=== PATIENT | male | born 1955 | race Caucasian/White ===

== ENCOUNTER → 2020-02-28 08:08 | Outpatient (BNVA) | payer MEDICARE, SELFPAY | PROVIDERS: PCP Internal Medicine Geriatric Medicine; Visit Provider Anesthesiology | DX: G89.4 Chronic pain syndrome (principal); M47.816 Spondylosis without myelopathy or radiculopathy, lumbar region; M51.36 Other intervertebral disc degeneration, lumbar region | CPT/HCPCS: 99212 ==

== ENCOUNTER 2020-03-28 07:01 | Outpatient (REF) | payer MEDICARE, SELFPAY ==
--- NOTE | 2020-03-28 07:40 | FL_ITS ---
EXAMINATION: XR FLUOROSCOPY WITH IMAGES CLINICAL INFORMATION: Spondylosis with myelopathy or radiculopathy. COMPARISON: None. TECHNIQUE: Fluoroscopy performed by Evelia Hernández NP. Fluoroscopy time: 1.0 minutes DAP: 6.86 Gycm2 Images: 8 FINDINGS: Multiple images were obtained through lumbar spine with needle positioned posterolateral to the bilateral pedicles at L5 L4 L3 vertebra with contrast injection. There is loss of disc height at all lumbar disc levels with mild spondylosis L4-L5 and L5-S1 disc levels. FL/FL guidance in treatment room IMPRESSION: Fluoroscopy guidance was provided for pain management Department.
== END 2020-03-28 07:02 | disposition home or self-care (01) ==
LOC: HO.RADIR 07:01
PROVIDERS: Visit Provider Anesthesiology
DX: M47.816 Spondylosis without myelopathy or radiculopathy, lumbar region (principal); M51.36 Other intervertebral disc degeneration, lumbar region; G89.4 Chronic pain syndrome
CPT/HCPCS: 64493; 64494; 64495; Q9967

== ENCOUNTER → 2020-04-03 10:53 | Outpatient (BNVA) | payer MEDICARE, SELFPAY | PROVIDERS: PCP Internal Medicine Geriatric Medicine; Visit Provider Anesthesiology | DX: M47.816 Spondylosis without myelopathy or radiculopathy, lumbar region (principal); M51.36 Other intervertebral disc degeneration, lumbar region; G89.4 Chronic pain syndrome | CPT/HCPCS: Q3014 ==

== ENCOUNTER 2020-06-14 14:26 | Outpatient (REF) | payer MEDICARE, SELFPAY | END 2020-06-14 14:27 | disposition home or self-care (01) | LOC: HO.LAB 14:26 | PROVIDERS: PCP Internal Medicine Geriatric Medicine; Visit Provider Internal Medicine | DX: Z20.822 Contact with and (suspected) exposure to COVID-19 (principal) | CPT/HCPCS: 36415; C9803; U0003; U0005 ==

== ENCOUNTER 2020-07-12 07:43 | Emergency (ER) | payer MEDICARE, SELFPAY ==
--- NOTE | ~2020-07-12 | XR_ITS ---
EXAMINATION: XR HAND, LEFT CLINICAL INFORMATION: Trauma, pain and swelling. COMPARISON: None TECHNIQUE: PA, lateral, and oblique views of the left hand. FINDINGS: There is no visible acute or healing fracture, dislocation, or destructive process. There is diffuse arthropathy present with prominent osteoarthritis lateral carpus and first carpometacarpal joint. There is also joint narrowing and subchondral sclerosis involving the first through fourth MCP joints. There are lesser degenerative changes interphalangeal joint thumb. XR/XR hand LT min 3V IMPRESSION: 1. No visible acute or healing fracture or dislocation. 2. Arthritis lateral carpus, MCP joints, and interphalangeal joint.
[2020-07-12 07:49] VITALS: BP 115/65; BP 180/65; PULSE 50; PULSE 62; RESP 16; TEMP 36.8; O2SAT 98; BMI 29.8
[2020-07-12 08:00] VITALS: BP 111/67; PULSE 53; RESP 18; TEMP 36.8; O2SAT 97
[2020-07-12] MEDS: Ibuprofen 600 MG TABLET PO (08:11)
--- NOTE | 2020-07-12 08:11 | ED_ITS ---
HPI - Back Pain/Injury General Chief Complaint: Back Pain/Injury Stated Complaint: tight shoulder, swollen finger Time Seen by Provider: 07/12/20 08:02 Source: patient and training director Mode of arrival: ambulatory Limitations: no limitations History of Present Illness HPI Narrative: 65-year-old male history of arthritis and chronic back pain came in by ambulance for evaluation of upper back pain and bilateral shoulder pain that started this morning, and symptoms start to improve with on arrival to the emergency department. Patient declined any injury or trauma to the back. Patient also has been complaining of left hand pain for a week. Reviewing patient's record patient follow-up with pain management for chronic pain syndrome. Related Data Home Medications Medication Instructions Recorded Confirmed aspirin 81 mg tablet,delayed 81 mg PO DAILY 02/28/20 release atorvastatin 20 mg tablet 20 mg PO DAILY 02/28/20 chlorthalidone 25 mg tablet 25 mg PO DAILY 02/28/20 gabapentin 600 mg tablet 600 mg PO BID 02/28/20 lisinopril 40 mg tablet 40 mg PO DAILY 02/28/20 meloxicam 15 mg tablet 15 mg PO DAILY 02/28/20 nabumetone 750 mg tablet 750 mg PO BID 02/28/20 naproxen 500 mg tablet,delayed 500 mg PO Q12H 02/28/20 release Allergies Allergy/AdvReac Type Severity Reaction Status Date / Time No Known Allergies Allergy Verified 04/03/20 10:53 [No Known Allergies*] Review of Systems Review of Systems: All other systems are reviewed and are negative Constitutional: Reports as per HPI and Reports no additional constitutional complaints Eyes: Reports as per HPI and Reports no additional eye complaints Reports system reviewed and no additional complaints, except as documented Cardiovascular: Reports as per HPI and Reports no additional cardiovascular complaints Respiratory: Reports as per HPI and Reports no additional respiratory complaints Gastrointestinal: Reports as per HPI and Reports no additional gastrointestinal complaints Genitourinary: Reports no additional female genitourinary complaints Musculoskeletal: Reports no additional musculoskeletal complaints Skin/Breast: Reports system reviewed and no additional complaints, except as docu Psychiatric: Reports no additional psychiatric complaints Endocrine: Reports no additional endocrine complaints Hematologic/Lymphatic: Reports no additional hematologic/lymphatic complaints Allergic/Immunologic: Reports no additional allergic/immunologic complaints Reports system reviewed and no additional complaints, except as documented and Reports Abnormal speech present PMFSH Past Medical History Medical History Chronic pain syndrome Disc degeneration, lumbar Spondylosis of lumbar spine Social History Social History Advance Directives: No Advance Directives Information Provided: No Physical Exam Vital Signs: Vital Signs: Last Vital Signs Temp 98.2 F 07/12/20 08:00 Pulse 53 07/12/20 08:00 Resp 18 07/12/20 08:00 BP 111/67 07/12/20 08:00 Pulse Ox 97 07/12/20 08:00 Body Mass Index 29.8 Vital signs have been reviewed as appeared to be correct. Blood pressure normal. Heart rate normal. Respiration rate normal. Temperature normal. Oxygen saturation normal. Appearance: Alert. Oriented X3. No acute distress. Head: Normal external exam. Normocephalic. Atraumatic. No [place] signs noted. No raccoon eyes noted Eyes: PERRLA. EOMI. Conjunctiva and sclera normal. Eyelids normal. ENT: TM's Normal. Pharynx normal. Uvula midline. Moist mucous membranes. No trismus noted. No drooling noted. No muffled voice noted. Neck: Normal inspection. Neck supple. FROM. No adenopathy. Thyroid Normal. No meningeal signs. No neck mass noted. CVS: Normal heart rate and rhythm. Heart sound normal. No murmurs noted. Pulses normal throughout. Respiratory: No respiratory distress. Painless inspiration. Breath sounds normal. No wheezes/rales/rhonchi noted. Chest nontender. No accessory muscle usage noted or decreased air movement noted. Abdomen: Soft and nontender. Bowel sounds normal in all 4 quadrants. No distention noted. No organomegaly noted. No visible injury noted. Back: No CVA tenderness. Full range of motion noted. Skin: Skin warm and dry. Normal skin color. Normal skin turgor. No rashe s/lesions/lacerations noted. Extremities: Mild tenderness to touch at the base of left index finger, mild swelling, no deformity, full range of motion is limited due to pain. Neuro: Oriented X 3. No motor deficit. No sensory deficit. Reflexes normal. Course Course Course Narrative: Assessment and plan. [age] year male who came in by ambulance for acute on chronic back pain that radiated to both shoulder, patient now is feeling better. Patient also been having left hand pain for a week possible injury. X-ray showing no acute fracture MDM - Back Pain/Injury Imaging Data Left hand x-ray: Radiologist's impression: There is no visible acute or healing fracture, dislocation, or destructive process. There is diffuse arthropathy present with prominent osteoarthritis lateral carpus and first carpometacarpal joint. There is also joint narrowing and subchondral sclerosis involving the first through fourth MCP joints. There are lesser degenerative changes interphalangeal joint thumb. Discharge Plan Discharge Clinical Impression: Chronic pain syndrome, Arthritis Patient Disposition: Home, Self-Care Instructions: Arthralgia (ED) Referrals: Name,MD Andriy [Primary Care Provider] - 2 days
[2020-07-12 10:00] VITALS: BP 125/71; PULSE 60; RESP 18; TEMP 36.8
== END 2020-07-12 10:31 | disposition home or self-care (01) ==
PROVIDERS: Emergency Provider Emergency Medicine; PCP Internal Medicine Geriatric Medicine
DX: M19.042 Primary osteoarthritis, left hand (principal); G89.29 Other chronic pain; M54.5 Low back pain; M25.512 Pain in left shoulder; M25.511 Pain in right shoulder; Z79.899 Other long term (current) drug therapy
CPT/HCPCS: 73130; 99284

== ENCOUNTER 2020-08-11 10:33 | Day surgery (SDC) | payer MEDICARE, SELFPAY ==
--- NOTE | ~2020-08-11 | FL_ITS ---
EXAMINATION: XR FLUOROSCOPY WITH IMAGES CLINICAL INFORMATION: Medial branch blocks. COMPARISON: None. TECHNIQUE: Fluoroscopy performed by Dr. Ibrahim. Fluoroscopy time: 1 minute. DAP: 21.9 mGy. Images: 8. FINDINGS: Intraoperative fluoroscopy was provided for use by Dr. Ibrahim. A radiologist was not present during imaging. Today's dictation is only for administrative purposes to document intraoperative fluoroscopy. FL/FL guidance in OR IMPRESSION: Intraoperative fluoroscopy provided for use by Dr. Ibrahim. Please see procedure note for details findings.
[2020-08-11 11:37] VITALS: BMI 29.0
[2020-08-11 11:44] VITALS: BP 146/84; PULSE 58; RESP 20; TEMP 36.2; O2SAT 97
[2020-08-11 11:46] LABS: Glucose, Whole Blood 76 mg/dL (60-115)
[2020-08-11] MEDS: Lactated Ringers 1,000 ML 50 ML IV (11:58)
--- NOTE | 2020-08-11 12:13 | MHC.SHP ---
Pre-Procedural Eval Section B Chief Complaint: Spondylosis of Lumbar Spine Details of Present Illness: As above Relevant Family History (Specify if Yes): No Relevant Social History: None Present Medications: see Short Stay Collaborative assessment Medical History: No relevant PMH History of Previous Operations: No relevant previous surgery Allergies: Allergies Allergy/AdvReac Type Severity Reaction Status Date / Time No Known Allergies Allergy Verified 08/11/20 11:36 [No Known Allergies*] Review of Systems Sugical H&P ROS: Negative: Constitution, Cardiovascular, Respiratory, Neurological, Psychiatric, Hem-Onc, Allergic/Immunologic, Gastrointestinal, Genitourinary, Musculoskeletal, Integumentary, Endocrine and Eyes/Ears/Nose/Throat Exam Surgical H&P Exam: Normal: HEENT, Normal: Heart, Normal: Lungs, Normal: Extremities, Normal: Abdomen, Normal: Skin and Normal: Neurological Plan Diagnosis/Plan: Unchanged I have reviewed the history and physical and performed a pertinent physical examination on my patient. No changes have occurred unless specified.
--- NOTE | 2020-08-11 12:19 | HO.ANESPROP2 ---
[facility] Active Problems Active Problems: All Active Problems (Updated 08/08/20 @ 11:20 by Juanita Rothman) Chronic pain syndrome (Acute) Disc degeneration, lumbar (Acute) Spondylosis of lumbar spine (Acute) Past Medical History Medical History Chronic pain syndrome Disc degeneration, lumbar Elevated cholesterol HTN (hypertension) Hx of chest pain Spondylosis of lumbar spine Surgical History Surgical History History of total left knee replacement (TKR) Hx of colonoscopy Social History Social History Smoking Status: Current every day smoker Use of substances other than those prescribed or required for medical reasons: No Advance Directives: No Advance Directives Information Provided: Yes Meds Allergies Allergy/AdvReac Type Severity Reaction Status Date / Time No Known Allergies Allergy Verified 08/11/20 11:36 [No Known Allergies*] Active Medications: Current Medications Generic Name Dose Route Start Last Admin Trade Name Janes PRN Reason Stop Dose Admin Lactated Ringer's 1,000 mls @ 50 mls/hr 08/10/20 08:15 08/11/20 11:58 Lr IV 50 mls/hr .Q20H EYAL Administration Home Medications Medication Instructions Recorded Confirmed Last Taken Type aspirin 81 mg tablet,delayed 81 mg PO DAILY 02/28/20 08/08/20 07/31/20 08:00 History release atorvastatin 20 mg tablet 20 mg PO DAILY 02/28/20 08/08/20 Unknown History chlorthalidone 25 mg tablet 25 mg PO DAILY 02/28/20 08/08/20 Unknown History gabapentin 600 mg tablet 600 mg PO BID 02/28/20 08/08/20 Unknown History lisinopril 40 mg tablet 40 mg PO DAILY 02/28/20 08/08/20 Unknown History meloxicam 15 mg tablet 15 mg PO DAILY 02/28/20 08/08/20 Unknown History nabumetone 750 mg tablet 750 mg PO BID 02/28/20 08/08/20 Unknown History naproxen 500 mg tablet,delayed 500 mg PO Q12H 02/28/20 08/08/20 Unknown History release diclofenac sodium 2 g TOPICAL BID 08/08/20 08/08/20 Unknown History tramadol 1 tab PO Q12H PRN 08/08/20 08/08/20 Unknown History Exam Exam Date and Time: August 11, 2020 1219 Height,Weight and Vital Signs: Height 5 ft 6 in Weight 81.647 kg Last Vital Signs Temp 97.1 F 08/11/20 11:44 Pulse 58 08/11/20 11:44 Resp 20 08/11/20 11:44 BP 146/84 H 08/11/20 11:44 Pulse Ox 97 08/11/20 11:44 Pertinent Lab Results Pertinent Lab Results: Laboratory Tests 08/11/20 11:43 POC Glucose 76 Airway Mallampati Class: II TM Dist: >3cm Neck ROM: Full
[2020-08-11 13:10] VITALS: BP 96/54; PULSE 60; RESP 14; TEMP 36.2; O2SAT 95
--- NOTE | 2020-08-11 13:18 | PM.OP ---
Brief Operative Note Date of Service: 08/11/20 Pre-op diagnosis: Spondylosis lumbar spine without myelopathy or radiculopathy Post-op diagnosis: same Procedure: L2-L3 L4 dorsal ramus L5 medial branch block bilateral therapeutic. Implants: In a Surgeon: Ashish Ibrahim MD Anesthesia: MAC Estimated blood loss (mL): 1 Pathology: none sent Condition: stable Disposition: PACU
--- NOTE | 2020-08-11 13:20 | W.PM.OPN ---
Operative Note Operative Note Date of Service: 08/11/20 Narrative: Narrative: Mr. Marin is very pleasant 65 years old gentleman who came today into the operating room for bilateral medial branch block L2 L3-L4 dorsal ramus L5 therapeutic. After obtaining informed consent patient was brought to the operating room, he was positioned prone on operating table, [place] [employer] monitors were applied and patient was deeply sedated. Time-out was performed delineating correct site, side, the nature of the procedure, patient's allergy, preoperative antibiotic. All operating room staff was participating in OR time-out procedure. Patient's lower back was prepped with ChloraPrep twice and draped with sterile utility drapes. Sterilely draped C-arm was brought over the operating field and sq picture of L3-L4 and L5 vertebra as as well as sacral bone were demonstrated on the screen. The point of interest were delineated as the connection of the superior articular process of L3-L4 and L5 vertebra on bilateral sides with corresponding transverse processes as well as connection of the superior articular process of S1 with sacral alae bilateral. Projection of the point of interest to the skin was injected with small amount of lidocaine. After that 22 gauge 3-1/2 inch needle was driven sequentially to the each point of interest under tunnel vision fashion. When the needle contacted the bone gently small amount of the contrast was injected into the needle delineating no intravascular nor intrathecal uptake of the contrast. After that 1 cc of bupivacaine 0.5% was injected into each needle mixed with Kenalog total dose of Kenalog was 60 mg. The patient tolerated procedure well he was taking outside of the operating room to recovery room. He recovered uneventfully.
[2020-08-11 13:25] VITALS: BP 114/66; PULSE 57; RESP 16; O2SAT 96
[2020-08-11 13:40] VITALS: BP 112/71; PULSE 52; RESP 16; O2SAT 98
[2020-08-11 13:55] VITALS: BP 143/84; PULSE 52; RESP 18; O2SAT 98
[2020-08-11 14:45] VITALS: BP 143/80; PULSE 57; RESP 21; TEMP 36.3; O2SAT 98
== END 2020-08-11 15:31 | disposition home or self-care (01) ==
LOC: HO.SSS 10:34
PROVIDERS: PCP Internal Medicine Geriatric Medicine; Visit Provider Anesthesiology
PROC: (CPT 64493; principal; 2020-08-11 15:50)
DX: M47.816 Spondylosis without myelopathy or radiculopathy, lumbar region (principal); M51.36 Other intervertebral disc degeneration, lumbar region; G89.4 Chronic pain syndrome; I10 Essential (primary) hypertension; Z79.899 Other long term (current) drug therapy
CPT/HCPCS: 64493; 64494 ×2; 82947; J2250; J3010; J3300; Q9967

== ENCOUNTER → 2020-09-20 11:32 | Outpatient (BNVA) | payer MEDICARE, SELFPAY | PROVIDERS: PCP Internal Medicine Geriatric Medicine; Visit Provider Anesthesiology | DX: M47.816 Spondylosis without myelopathy or radiculopathy, lumbar region (principal); M51.36 Other intervertebral disc degeneration, lumbar region; G89.4 Chronic pain syndrome; Z79.899 Other long term (current) drug therapy | CPT/HCPCS: Q3014 ==

== ENCOUNTER → 2020-10-04 10:58 | Outpatient (BNVA) | payer MEDICARE, SELFPAY | PROVIDERS: PCP Internal Medicine Geriatric Medicine; Visit Provider Anesthesiology | DX: M47.816 Spondylosis without myelopathy or radiculopathy, lumbar region (principal); M48.00 Spinal stenosis, site unspecified; M51.36 Other intervertebral disc degeneration, lumbar region; G89.4 Chronic pain syndrome | CPT/HCPCS: 99212 ==

== ENCOUNTER → 2020-11-08 08:46 | Outpatient (BNVA) | payer MEDICARE, SELFPAY | PROVIDERS: PCP Internal Medicine Geriatric Medicine; Referring Provider Internal Medicine Geriatric Medicine; Visit Provider Internal Medicine Cardiovascular Disease | DX: E78.00 Pure hypercholesterolemia, unspecified (principal); I10 Essential (primary) hypertension | CPT/HCPCS: 93005; 99212 ==

== ENCOUNTER 2020-12-19 06:22 | Outpatient (REF) | payer MEDICARE, SELFPAY ==
--- NOTE | ~2020-12-19 | FL_ITS ---
EXAMINATION: XR FLUOROSCOPY WITH IMAGES CLINICAL INFORMATION: Spinal stenosis. COMPARISON: None. TECHNIQUE: Fluoroscopy performed by Evelia Hernández NP. Fluoroscopy time: 0.9 minutes DAP: 11 Gycm2 Images: 4 FINDINGS: Images demonstrate needle placement and contrast injection adjacent to the bilateral lateral L3-L4 vertebral body. FL/FL guidance in treatment room IMPRESSION: Fluoroscopy guidance for spinal injection.
== END 2020-12-19 06:23 | disposition home or self-care (01) ==
LOC: HO.RADIR 06:22
PROVIDERS: Visit Provider Anesthesiology
DX: M47.816 Spondylosis without myelopathy or radiculopathy, lumbar region (principal); M51.36 Other intervertebral disc degeneration, lumbar region; M48.00 Spinal stenosis, site unspecified; G89.4 Chronic pain syndrome
CPT/HCPCS: 62323; J3300; Q9967

== ENCOUNTER → 2021-09-10 07:58 | Outpatient (BNVA) | payer MEDICARE, SELFPAY | PROVIDERS: PCP Internal Medicine Geriatric Medicine; Visit Provider Nurse Practitioner Family | DX: M47.816 Spondylosis without myelopathy or radiculopathy, lumbar region (principal); M51.36 Other intervertebral disc degeneration, lumbar region; M48.00 Spinal stenosis, site unspecified | CPT/HCPCS: 99212 ==

== ENCOUNTER 2021-11-05 14:08 | Outpatient (REF) | payer MEDICARE, SELFPAY ==
--- NOTE | ~2021-11-05 | MR_ITS ---
MR LUMBAR SPINE WITHOUT CONTRAST CLINICAL INFORMATION: Spondylosis without myelopathy or radiculopathy. COMPARISON: Lumbar spine MRI 12/27/2017. TECHNIQUE: MRI of the lumbar spine was obtained using routine sequences without contrast. FINDINGS: There is transitional anatomy. For the purposes of this report, the same counting system is used as the previous study presuming that S1 is partially lumbarized, sharing a rudimentary disc with S2 and that there are articulating transverse processes at L1. Please correlate with plain films prior to any percutaneous or surgical intervention. Chronic compression deformity at L1 is again noted. Similar appearing grade 1 degenerative anterolisthesis of L4 on L5. Progressive posterior disc volume loss at L1-L2, moderate to severe disc volume loss at L2-L3, and severe left-sided disc volume loss at L3-L4. Similar moderate to severe disc volume loss at L5-S1. There are large multilevel endplate osteophytes. Diffusely heterogeneous marrow signal is again noted. There is marrow edema within the L2, L3, L4, and L5 vertebral bodies, most likely Modic type I endplate signal changes which are progressed in comparison to the prior exam. There Modic type I signal changes at T11-T12 and T10-T11 as well. Conus terminates at the L1-L2 level. Bilateral perinephric stranding. Circumaortic left renal vein. Disc osteophyte and hypertrophic facet arthropathy result in moderate left T9-T10, moderate left T10-T11, moderate to severe left T11-T12, moderate right T10-T11, and severe right T11-T12 foraminal stenosis, all similar to the prior exam. L1-L2: There is a shallow left paracentral disc protrusion that results in similar posterior deflection of the traversing left L2 nerve root within the left subarticular zone. Background disc osteophyte and bilateral facet arthropathy and ligamentum flavum thickening. No central canal stenosis. There is mild bilateral foraminal encroachment. These findings are unchanged. L2-L3: There is a disc osteophyte complex eccentric to the left side and there is moderate bilateral facet arthropathy and ligamentum flavum thickening. Findings along with prominent dorsal epidural fat result in worsening moderate central canal stenosis, left subarticular zone stenosis with mass effect on the traversing left L3 nerve root, and worsening moderate right foraminal stenosis with mass effect on the exiting right L2 nerve root. There is mild to moderate left foraminal stenosis as well. L3-L4: There is a diffuse disc osteophyte complex and there is severe left and moderate right facet arthropathy and ligamentum flavum thickening. Prominent dorsal epidural fat. Findings in concert result in similar moderate central canal stenosis, left greater than right subarticular zone stenosis with mass effect on the traversing left L4 nerve root, and moderate to severe left foraminal stenosis with mass effect on the exiting left L3 nerve root. The previously seen inferiorly migrating left paracentral disc extrusion at this level is decreased in size, resulting in decreased mass effect on the traversing left L4 nerve root. L4-L5: Stable grade 1 degenerative anterolisthesis. Uncovered disc and severe bilateral facet arthropathy and ligamentum flavum thickening. Findings in concert result in similar appearing severe central canal stenosis, severe bilateral subarticular zone stenosis with compression of the traversing L5 nerve roots bilaterally, and mild to moderate bilateral foraminal stenosis. L5-S1: Diffuse disc osteophyte complex eccentric to the right side as well as moderate right greater than left hypertrophic facet arthropathy. Findings in concert result in similar moderate right-sided foraminal stenosis with mass effect on the exiting right L5 nerve root. MR/MR lumbar spine wo con IMPRESSION: - There is transitional anatomy. For the purposes of this report, the same counting system is used as the previous study presuming that S1 is partially lumbarized, sharing a rudimentary disc with S2 and that there are articulating transverse processes at L1. Please correlate with plain films prior to any percutaneous or surgical intervention. - At L5-S1, multifactorial degenerative changes result in similar moderate right-sided foraminal stenosis with mass effect on the exiting right L5 nerve root. - At L4-L5, grade 1 degenerative anterolisthesis and advanced multifactorial degenerative changes result in similar appearing severe central canal stenosis, severe bilateral subarticular zone stenosis with compression of the traversing L5 nerve roots bilaterally, and mild to moderate bilateral foraminal stenosis. - At L3-L4, multifactorial degenerative changes result in similar moderate central canal stenosis, left greater than right subarticular zone stenosis with mass effect on the traversing left L4 nerve root, and moderate to severe left foraminal stenosis with mass effect on the exiting left L3 nerve root. The previously seen inferiorly migrating left paracentral disc extrusion at this level is decreased in size, resulting in decreased mass effect on the traversing left L4 nerve root. - At L2-L3, progressive spondylitic changes and prominent dorsal epidural fat result in worsening moderate central canal stenosis, left subarticular zone stenosis with mass effect on the traversing left L3 nerve root, and worsening moderate right foraminal stenosis with mass effect on the exiting right L2 nerve root. - At L1-L2, a shallow left paracentral disc protrusion results in similar posterior deflection of the traversing left L2 nerve root within the left subarticular zone. - Stable appearing chronic compression deformity at L1. No new compression deformities. - Progressive bone marrow edema within the L2, L3, L4, and to lesser extent L5 vertebral bodies, most likely Modic type I endplate signal changes. There are also Modic type I signal changes within the lower thoracic spine. Nonspecific diffusely heterogeneous marrow signal throughout the thoracolumbar spine and partially imaged bony pelvis that is unchanged.
== END 2021-11-05 14:09 | disposition home or self-care (01) ==
LOC: HO.MRI 14:08
PROVIDERS: Visit Provider Nurse Practitioner Family
DX: M47.816 Spondylosis without myelopathy or radiculopathy, lumbar region (principal); M48.00 Spinal stenosis, site unspecified; M51.36 Other intervertebral disc degeneration, lumbar region
CPT/HCPCS: 72148

== ENCOUNTER → 2021-11-14 09:44 | Outpatient (BNVA) | payer MEDICARE, SELFPAY | PROVIDERS: PCP Internal Medicine Geriatric Medicine; Visit Provider Anesthesiology | DX: M47.816 Spondylosis without myelopathy or radiculopathy, lumbar region (principal); M51.36 Other intervertebral disc degeneration, lumbar region; M48.00 Spinal stenosis, site unspecified | CPT/HCPCS: 99212 ==

== ENCOUNTER 2021-12-25 06:19 | Outpatient (REF) | payer MEDICARE, SELFPAY ==
--- NOTE | ~2021-12-25 | FL_ITS ---
EXAMINATION: XR FLUOROSCOPY WITH IMAGES CLINICAL INFORMATION: M51.36 - Other intervertebral disc degeneration, lumbar region COMPARISON: MR lumbar spine 11/05/2021 TECHNIQUE: Fluoroscopy performed by Dr. Ashish Ibrahim. Fluoroscopy time: 0.4. Cumulative Dose: 7.54 mGy. DAP: 2.05 Gy-cm2. Images: 4. FINDINGS: Lumbar transitional vertebral numbering noted on MRI. There are spinal needles overlying the bilateral second presacral neural foramen. There is contrast seen in the respective nerve sheaths. Transforaminal epidural extension is also noted as expected. There is some contrast also noted extending along the lateral aspect right iliopsoas. No visible vascular communication. There are multilevel degenerative changes with variable disc narrowing and vertebral spurring. FL/FL guidance in treatment room IMPRESSION: Fluoroscopy for pain management procedures.
== END 2021-12-25 06:20 | disposition home or self-care (01) ==
LOC: HO.RADIR 06:19
PROVIDERS: Visit Provider Anesthesiology
DX: M51.16 Intervertebral disc disorders with radiculopathy, lumbar region (principal); G89.4 Chronic pain syndrome; M48.00 Spinal stenosis, site unspecified
CPT/HCPCS: 64483; J3300; Q9965

== ENCOUNTER → 2022-01-23 13:14 | Outpatient (BNVA) | payer MEDICARE, SELFPAY | PROVIDERS: PCP Internal Medicine Geriatric Medicine; Referring Provider Internal Medicine Geriatric Medicine; Visit Provider Internal Medicine Cardiovascular Disease | DX: I10 Essential (primary) hypertension (principal); E78.00 Pure hypercholesterolemia, unspecified; F17.210 Nicotine dependence, cigarettes, uncomplicated | CPT/HCPCS: 99212 ==

== ENCOUNTER 2022-01-30 07:05 | Outpatient (REF) | payer OTHER, SELFPAY ==
[2022-01-30 09:14] LABS: Cholesterol 146 mg/dL; HDL Cholesterol 52 mg/dL; LDL Cholesterol Calculated 82 mg/dl; Triglycerides 61 mg/dL
== END 2022-01-30 07:06 | disposition home or self-care (01) ==
LOC: HO.LAB 07:05
PROVIDERS: PCP Internal Medicine Geriatric Medicine; Visit Provider Internal Medicine Cardiovascular Disease
DX: E78.00 Pure hypercholesterolemia, unspecified (principal)
CPT/HCPCS: 36415; 80061

== ENCOUNTER 2022-07-08 09:48 | Outpatient (REF) | payer OTHER, SELFPAY ==
--- NOTE | ~2022-07-08 | XR_ITS ---
EXAMINATION: XR HIP, RIGHT CLINICAL INFORMATION: Pain COMPARISON: None available. TECHNIQUE: Two views of the right hip. FINDINGS: Bones and soft tissues are normal. No fracture. Alignment is anatomic. Hip joint space is maintained. XR/XR hip RT min 2V IMPRESSION: Normal right hip.
== END 2022-07-08 09:49 | disposition home or self-care (01) ==
LOC: HO.XRAY 09:48
PROVIDERS: PCP Internal Medicine Geriatric Medicine; Visit Provider Anesthesiology
DX: M16.11 Unilateral primary osteoarthritis, right hip (principal); M47.816 Spondylosis without myelopathy or radiculopathy, lumbar region; M51.36 Other intervertebral disc degeneration, lumbar region; M48.00 Spinal stenosis, site unspecified
CPT/HCPCS: 73502; 99212

== ENCOUNTER → 2022-08-01 09:39 | Outpatient (BNVA) | payer OTHER, SELFPAY | PROVIDERS: PCP Internal Medicine Geriatric Medicine; Visit Provider Anesthesiology | DX: M47.816 Spondylosis without myelopathy or radiculopathy, lumbar region (principal); M51.36 Other intervertebral disc degeneration, lumbar region; M48.00 Spinal stenosis, site unspecified | CPT/HCPCS: 99212 ==

== ENCOUNTER 2022-10-29 08:35 | Outpatient (REF) | payer OTHER, SELFPAY ==
[2022-10-29 11:12] LABS: MANUAL DIFF FLAG NO
[2022-10-29 11:37] LABS: Basophils Absolute Auto 0.1 X10*3/uL (0.0-0.2); Basophils Percent Auto 0.7 % (0-2); Eosinophils Absolute Auto 0.2 X10*3/uL (0.0-0.4); Eosinophils Percent Auto 1.6 % (0-4); Hematocrit 46.8 % (42.0-52.0); Hemoglobin 15.4 g/dl (14.0-18.0); Imm Gran Abs Auto 0.05 X10*3/uL (0.00-0.03); Imm Gran Pct Auto 0.5 % (0.0-0.4); Lymphocytes Absolute Auto 2.5 X10*3/uL (1.2-4.9); Lymphocytes Percent Auto 24.4 % (20-40); Mean Corpuscular HGB Conc 32.9 g/dl (31.0-36.0); Mean Corpuscular Hemoglobin 29.6 pg (27.0-33.0); Mean Corpuscular Volume 89.8 fL (80.0-98.0); Mean Platelet Volume 10.3 fL (9.4-12.4); Monocytes Absolute Auto 0.6 X10*3/uL (0.1-1.2); Neutrophils Absolute Auto 6.7 x10*3/uL (2.0-8.3); Neutrophils Percent Auto 66.8 % (45-73); Platelet Count 354 X10*3/uL (160-400); Red Blood Count 5.21 X10*6/uL (4.60-5.80)
[2022-10-29 11:45] LABS: Alanine Aminotransferase 21 U/L (0-40); Albumin Level 4.4 g/dL (3.5-5.0); Alkaline Phosphatase 64 U/L (39-117); Anion Gap 15 (12-20); Aspartate Amino Transferase 19 U/L (5-37); Bilirubin Total 0.9 mg/dL (0.0-1.0); Blood Urea Nitrogen 21 mg/dL (9-16); Calcium 9.9 mg/dL (8.4-10.2); Carbon Dioxide 24 mmol/L (22-29); Chloride 101 mmol/L (96-108); Cholesterol 133 mg/dL; Estimated Glomerular Filt Rate 51; Glucose Random 98 mg/dL (60-115); HDL Cholesterol 45 mg/dL; LDL Cholesterol Calculated 74 mg/dl; Potassium 4.1 mmol/L (3.3-5.1); Sodium 136 mmol/L (135-145); Total Protein 7.8 g/dL (6.5-8.0); Triglycerides 71 mg/dL
== END 2022-10-29 08:36 | disposition home or self-care (01) ==
LOC: HO.HMGCLDS 08:35
PROVIDERS: Visit Provider Internal Medicine Geriatric Medicine
DX: I10 Essential (primary) hypertension (principal); E78.00 Pure hypercholesterolemia, unspecified
CPT/HCPCS: 36415; 80053; 80061; 85025

== ENCOUNTER 2022-12-20 13:51 | Outpatient (AMB) | payer OTHER, SELFPAY ==
--- NOTE | 2022-12-20 08:10 | MHC.OFFVIS ---
Intake Intake Visit Reasons: LDCT SD Allergies No Known Allergies [No Known Allergies*] Allergy (Verified 08/01/22 09:45) HPI LDCT SD HPI Details Initial visit for this 67yo smoker with a 35PYH. Patient has been smoking since age 8 for 59 years at 1/2-3/4ppd. . Denies marijuana use. Denies second hand smoke exposure. Denies exposure to chemicals or substances like asbestos. . Reports family history of lung cancer. Mom. Denies personal history of cancers. . Denies chest CT in last year. 06/25/2012 chest CTA did not note any suspicious nodules . Denies recent travel outside the [place]. Denies recent respiratory illness or recent hospitalization for respiratory issues. Reprots testing positive for COVID once. Admits receiving COVID Vaccine x 4. . Denies fever, chills, new/worsening cough, hemoptysis, hoarseness or dysphagia. Denies significant chest pain, significant dyspnea or unintentional weight loss. Patient Lung Cancer Screening Questionnaire reviewed with patient by provider. . Shared Decision Making Completed. Patient meets criteria. Discussed in detail with patient, the risk vs benefit of LDCT screening. Patient consents to proceed with scan. Discussed smoking cessation. [facility] Medical History (Updated 12/20/22 @ 14:12 by María Bowman PA-C) Chronic pain syndrome Disc degeneration, lumbar Elevated cholesterol History of colon polyps HTN (hypertension) Hx of chest pain Nicotine dependence, cigarettes, uncomplicated Spinal stenosis Spondylosis of lumbar spine Surgical History (Updated 11/21/22 @ 13:55 by María Bowman PA-C) History of colonoscopy History of selective injection of anesthetic agent around lumbar nerve root History of total left knee replacement (TKR) Social History (Updated 12/20/22 @ 14:12 by María Bowman PA-C) Alcohol intake: former Year quit: 2019 Patient Tobacco Use Status: Current everyday Tobacco user Tobacco use type: Cigarette Years Smoked: (onset 8, 1/2-3/4ppd x 59yrs, 35pyh) Assessment & Plan Assessment & Plan (1) Nicotine dependence, cigarettes, uncomplicated: Comment: (current smoker - onset 8, 1/2-3/4ppd x 59yrs, 35pyh) Code(s): F17.210 - Nicotine dependence, cigarettes, uncomplicated Plan: - SDM visit completed today in office. - Patient meets criteria for LDCT for lung cancer screening purposes and is asymptomatic. - Smoking cessation counseling offered. Patients can always call [phone]. - Will arrange for a LDCT scan of the chest for screening purposes at [facility]. - Risks, benefits, and alternatives were discussed in detail and the patient agrees to proceed. - Risks discussed include but are not limited to: radiation exposure, anxiety during testing and while awaiting results, false negatives, false positives and possibility of additional intervention such as further imaging or surgical procedures for benign disease. - Benefits are obviously detection of lung cancer at an early stage which can lead to improved outcomes. - Discussed the importance of screening program compliance with adherence to yearly LDCT scan as scheduled - or sooner interval scans for personalized screening regimen. - Discussed follow up plan. Our office will send a letter discussing results and if needed set up phone call and office visit based on CT findings. - Patient educated on results categorization and the management decisions for suspicious findings potentially found on the screening LDCT scan. Any patient with a Lung RADS score of 3 or 4 will be reviewed by a multidisciplinary team at [facility] to form a plan of action in regards to scan findings. - If further work up is warranted for a suspicious lung finding this will be followed by the Lung Cancer Screening program in conjunction with the Thoracic Surgery Department at [facility]. - A copy of the office note and LDCT will be sent to the patient's PCP - as well as documentation on any associated further plans of care. - Incidental findings on LDCT are the PCP's responsibility. These findings are indicated with an S finding on the LDCT Assessment. A note discussing the findings will be sent to the PCP who is then responsible for further management. - All questions answered.? Coding Level of Care Code Lung Cancer Screening G0296 Diagnoses Nicotine dependence, cigarettes, uncomplicated F17.210
== END 2022-12-20 14:11 | disposition home or self-care (01) ==
PROVIDERS: PCP Internal Medicine Geriatric Medicine; Visit Provider Physician Assistant Medical
DX: F17.210 Nicotine dependence, cigarettes, uncomplicated (principal)
CPT/HCPCS: G0296

== ENCOUNTER 2022-12-20 14:13 | Outpatient (REF) | payer OTHER, SELFPAY ==
--- NOTE | ~2022-12-20 | CT_ITS ---
EXAMINATION: CT CHEST SCREENING CLINICAL INFORMATION: Current smoker, 59 pack-year. COMPARISON: CTA chest 06/25/2022. TECHNIQUE: Multidetector volumetric CT imaging of the chest is performed without contrast using low dose technique. Additional 2D coronal and sagittal reformatted images and axial 3D maximum intensity projection (MIP) images are generated on the CT workstation. This CT examination was performed using dose optimization techniques as appropriate, variously including the following: *Automated exposure control. *Adjustment of mA and/or kV according to patient size (this includes techniques or standardized protocols for targeted exams where dose is matched to indication/reason for exam; i.e. extremities or head). *Use of iterative reconstruction technique. DLP: 92 mGy-cm. FINDINGS: LUNGS: There is a 2 mm calcification left lower lobe image 210/6. The lungs are otherwise well expanded and clear of acute process. No noncalcified pulmonary nodules, mass or consolidation seen. MEDIASTINUM: The thyroid lobes are symmetrical and normal. The central trachea and bronchi are widely patent. Heart size and the great vessels are normal caliber. No pericardial effusion seen. No abnormal size mediastinal or hilar lymph nodes seen. CORONARY ARTERY CALCIFICATION: There is minimal coronary artery calcification. PLEURA: There is no pleural effusion. No pleural mass or thickening. AXILLA: There are small shotty lymph nodes visualized in the axilla. The chest wall is unremarkable. UPPER ABDOMEN: Visualized liver, spleen, pancreas and bilateral adrenal glands are unremarkable. OSSEOUS STRUCTURES: No aggressive lytic or sclerotic process seen. There is mild degenerative spondylosis in the mid and lower dorsal spine. CT/CT lung screening IMPRESSION: 1. 2 mm calcification left lower lobe. 2. Minimal coronary artery calcification. ASSESSMENT: Lung-RADS category 2: Benign. RECOMMENDATION: Low-dose annual CT chest.
== END 2022-12-20 14:14 | disposition home or self-care (01) ==
LOC: HO.CT 14:13
PROVIDERS: PCP Internal Medicine Geriatric Medicine; Visit Provider Physician Assistant Medical
DX: Z12.2 Encounter for screening for malignant neoplasm of respiratory organs (principal); F17.210 Nicotine dependence, cigarettes, uncomplicated
CPT/HCPCS: 71271; G0296

== ENCOUNTER 2023-01-07 11:08 | Outpatient (REF) | payer OTHER, SELFPAY ==
[2023-01-07 17:11] LABS: Anion Gap 11 (12-20); Blood Urea Nitrogen 13 mg/dL (9-16); Calcium 9.7 mg/dL (8.4-10.2); Carbon Dioxide 29 mmol/L (22-29); Chloride 102 mmol/L (96-108); Estimated Glomerular Filt Rate > 60; Glucose Random 151 mg/dL (60-115); Potassium 3.9 mmol/L (3.3-5.1); Sodium 138 mmol/L (135-145)
== END 2023-01-07 11:09 | disposition home or self-care (01) ==
LOC: HO.HHCL 11:08
PROVIDERS: Visit Provider Internal Medicine Geriatric Medicine
DX: I10 Essential (primary) hypertension (principal)
CPT/HCPCS: 36415; 80048

== ENCOUNTER 2023-01-08 16:01 | Inpatient (IN) | payer OTHER, SELFPAY ==
[2023-01-08 16:16] VITALS: BP 92/52; PULSE 82; RESP 18; TEMP 36.9; O2SAT 96; BMI 29.0
--- NOTE | 2023-01-08 16:17 | ED.GENADULT ---
HPI - General Adult General Chief complaint: General Medical Stated complaint: low blood pressure Time Seen by Provider: 01/09/23 00:15 Related Data Home Medications Medication Instructions Recorded Confirmed aspirin 81 mg tablet,delayed 81 mg PO DAILY 02/28/20 07/08/22 release atorvastatin 20 mg tablet 20 mg PO DAILY 02/28/20 07/08/22 chlorthalidone 25 mg tablet 25 mg PO DAILY 02/28/20 07/08/22 gabapentin 600 mg tablet 600 mg PO BID 02/28/20 07/08/22 lisinopril 40 mg tablet 40 mg PO DAILY 02/28/20 07/08/22 meloxicam 15 mg tablet 15 mg PO DAILY 02/28/20 07/08/22 diclofenac sodium 1 % topical gel 2 g topical BID 08/08/20 07/08/22 tramadol 50 mg tablet 1 tab PO Q12H PRN Pain 08/08/20 07/08/22 cyclobenzaprine 10 mg tablet 10 mg PO TID 09/10/21 07/08/22 omeprazole 20 mg capsule,delayed 20 mg PO DAILY 09/10/21 07/08/22 release fluoride (sodium) 1.1 % dental appl PO 01/23/22 07/08/22 cream (SF 5000 Plus) mometasone 0.1 % topical cream appl topical DAILY 01/23/22 07/08/22 Allergies Allergy/AdvReac Type Severity Reaction Status Date / Time No Known Allergies Allergy Verified 08/01/22 09:45 [No Known Allergies*] [facility] Past Medical History Medical History Nicotine dependence, cigarettes, uncomplicated History of colon polyps Spinal stenosis Hx of chest pain Elevated cholesterol HTN (hypertension) Chronic pain syndrome Disc degeneration, lumbar Spondylosis of lumbar spine Surgical History History of selective injection of anesthetic agent around lumbar nerve root History of colonoscopy History of total left knee replacement (TKR) Social History Social History (Updated 12/20/22 @ 14:12 by María Bowman PA-C) Alcohol intake: former Year quit: 2019 Patient Tobacco Use Status: Current everyday Tobacco user Tobacco use type: Cigarette Years Smoked: (onset 8, 1/2-3/4ppd x 59yrs, 35pyh) Advance Directives: No Advance Directives Information Provided: No Physical Exam ED Vital Signs: Vital Signs - 24 hr 01/08/23 16:16 01/08/23 22:19 01/09/23 02:21 Temperature 98.4 F Pulse Rate 82 56 53 Respiratory Rate 18 20 19 Blood Pressure 92/52 L 116/67 98/51 L Pulse Oximetry 96 96 Oxygen Delivery Method Room Air Room Air 01/09/23 02:41 01/09/23 03:32 01/09/23 03:33 Temperature Pulse Rate 55 63 55 Respiratory Rate 18 Blood Pressure 91/52 L 98/41 L 108/54 L Pulse Oximetry 98 Oxygen Delivery Method Room Air 01/09/23 03:34 01/09/23 03:36 Temperature Pulse Rate 61 73 Respiratory Rate 17 Blood Pressure 118/62 120/63 Pulse Oximetry 98 Oxygen Delivery Method Room Air BMI result Body Mass Index 29.0 Course Course Course Narrative: This is a rapid medical exam: Additional HPI, ROS, PE not included below will be deferred to primary provider. Patient is a 67-year-old male presenting to the emergency department with report of low blood pressure readings at home. Brings readings of 81/53 with HR of 85 and 87/48 with HR of 87 from 2pm and 3:30pm today. 92/52 in triage, patient reports some dizziness. Denies chest pain or shortness of breath. States lisinopril was recently lowered from 40mg to 20mg. Had some double vision earlier today which has since resolved. Plan: EKG, labs Medications Administered Discontinued Medications Generic Name Dose Route Start Last Admin Trade Name Freq PRN Reason Stop Dose Admin Sodium Chloride 2,000 mls @ 999 mls/hr 01/09/23 00:18 01/09/23 03:51 Ns IVCONT 01/09/23 02:18 Infused .Q2H1M ONE Infusion Medical Decision Making Medical Decision Making [facility] Narrative: -my interpretation of labs: Hematology unremarkable. Chemistry concerning for acute kidney injury. One day ago, patient's creatinine was 0.97, today 3.77. Patient was given 2 L of normal saline, creatinine improved to 2.0. However, patient came in with a low blood pressure. Is possible the patient's lisinopril dose was higher than tolerated. -at this time, patient has no chest pain no shortness of breath, no lightheadedness. Blood pressure stable 120/63, orthostatic vitals negative -I discussed the patient with Dr. Coe, patient being admitted Differential Diagnosis Differential Diagnoses: The differential diagnosis associated with the presentation includes (As above) Admission/Observation Consideration of admission/observation: Escalation of care including admission/observation considered Consult Healthcare Provider Management of the patient was discussed with: Hospitalist Lab Data MDM Lab Attestation statement: I reviewed the patient's lab results. 01/08/23 16:47 01/09/23 04:00 Labs: Lab Results 01/08/23 01/09/23 Range/Units 16:47 04:00 WBC 9.5 (4.8-10.8) X10*3/uL RBC 4.19 L (4.60-5.80) X10*6/uL Hgb 12.6 L (14.0-18.0) g/dl Hct 36.9 L D (42.0-52.0) % MCV 88.1 (80.0-98.0) fL MCH 30.1 (27.0-33.0) pg MCHC 34.1 (31.0-36.0) g/dl RDW 14.6 (11.0-16.0) % Plt Count 233 D (160-400) X10*3/uL MPV 9.8 (9.4-12.4) fL Immature Gran % (Auto) 0.3 (0.0-0.4) % Neut % (Auto) 75.2 H (45-73) % Lymph % (Auto) 16.7 L (20-40) % [place] % (Auto) 5.1 (2-11) % Eos % (Auto) 2.4 (0-4) % Baso % (Auto) 0.3 (0-2) % Lymph # (Auto) 1.6 (1.2-4.9) X10*3/uL [place] # (Auto) 0.5 (0.1-1.2) X10*3/uL Eos # (Auto) 0.2 (0.0-0.4) X10*3/uL Baso # (Auto) 0.0 (0.0-0.2) X10*3/uL Abs Immat Gran (auto) 0.03 (0.00-0.03) X10*3/uL Absolute Neuts (auto) 7.1 (2.0-8.3) x10*3/uL Absolute Nucleated RBC 0.000 (0.0-0.012) X10*3/uL Nucleated RBC % (auto) 0.0 (0.0-0.2) /100WBC Sodium 135 138 (135-145) mmol/L Potassium 4.0 4.1 (3.3-5.1) mmol/L Chloride 105 110 H (96-108) mmol/L Carbon Dioxide 22 22 (22-29) mmol/L Anion Gap 12 10 L (12-20) BUN 53 H 41 H (9-16) mg/dL Creatinine 3.77 H 2.01 H (0.5-1.4) mg/dL Estim Creat Clear Calc 18.5 34.8 Estimated GFR 16 33 Random Glucose 158 H 95 (60-115) mg/dL Calcium 9.0 D 8.6 (8.4-10.2) mg/dL Total Bilirubin 0.7 (0.0-1.0) mg/dL AST 29 (5-37) U/L ALT 35 (0-40) U/L Alkaline Phosphatase 58 (39-117) U/L Troponin I High Sens 4.0 (<3.5-35.0) ng/L Total Protein 6.6 (6.5-8.0) g/dL Albumin 3.8 (3.5-5.0) g/dL Critical Care Time Critical Care Time Critical Care Time: Yes Total Critical Care Time: 60 Attestation: I have personally provided critical care time. Time includes review of lab data, radiology results, discussion with consultants, and monitoring for potential decompensation. Intervention performed as documented. Discharge Plan Discharge Clinical Impression: Acute hypotension, Acute kidney injury Patient Disposition: Admitted As Inpatient Prescriptions: No Action tramadol 50 mg tablet 1 tab PO Q12H PRN (Reason: Pain) diclofenac sodium 1 % gel 2 g topical BID gabapentin 600 mg tablet 600 mg PO BID atorvastatin 20 mg tablet 20 mg PO DAILY lisinopril 40 mg tablet 40 mg PO DAILY aspirin 81 mg tablet,delayed release (DR/EC) 81 mg PO DAILY chlorthalidone 25 mg tablet 25 mg PO DAILY meloxicam 15 mg tablet 15 mg PO DAILY cyclobenzaprine 10 mg tablet 10 mg PO TID omeprazole 20 mg capsule,delayed release(DR/EC) 20 mg PO DAILY fluoride (sodium) [SF 5000 Plus] 1.1 % cream PO mometasone 0.1 % cream topical DAILY
--- NOTE | 2023-01-08 16:20 | ECG_ITS ---
Test Reason : LOW BLOOD PRESSURE Blood Pressure : / mmHG Vent. Rate : 077 BPM Atrial Rate : 077 BPM P-R Int : 172 ms QRS Dur : 092 ms QT Int : 376 ms P-R-T Axes : 037 016 023 degrees QTc Int : 425 ms Normal sinus rhythm Normal ECG When compared with ECG of 06-JAN-2018 15:43, Premature atrial complexes are no longer Present Referred By: Mercedes Granda Electronically Signed By:CODY LAMAR
[2023-01-08 16:51] LABS: MANUAL DIFF FLAG NO
[2023-01-08 16:56] LABS: Basophils Percent Auto 0.3 % (0-2); Eosinophils Absolute Auto 0.2 X10*3/uL (0.0-0.4); Eosinophils Percent Auto 2.4 % (0-4); Hematocrit 36.9 % (42.0-52.0); Hemoglobin 12.6 g/dl (14.0-18.0); Imm Gran Abs Auto 0.03 X10*3/uL (0.00-0.03); Imm Gran Pct Auto 0.3 % (0.0-0.4); Lymphocytes Absolute Auto 1.6 X10*3/uL (1.2-4.9); Lymphocytes Percent Auto 16.7 % (20-40); Mean Corpuscular HGB Conc 34.1 g/dl (31.0-36.0); Mean Corpuscular Hemoglobin 30.1 pg (27.0-33.0); Mean Corpuscular Volume 88.1 fL (80.0-98.0); Mean Platelet Volume 9.8 fL (9.4-12.4); Monocytes Absolute Auto 0.5 X10*3/uL (0.1-1.2); Monocytes Percent Auto 5.1 % (2-11); Neutrophils Absolute Auto 7.1 x10*3/uL (2.0-8.3); Neutrophils Percent Auto 75.2 % (45-73); Platelet Count 233 X10*3/uL (160-400); Red Blood Count 4.19 X10*6/uL (4.60-5.80); Red Cell Distribution Width 14.6 % (11.0-16.0); White Blood Count 9.5 X10*3/uL (4.8-10.8)
[2023-01-08 17:16] LABS: Alanine Aminotransferase 35 U/L (0-40); Albumin Level 3.8 g/dL (3.5-5.0); Alkaline Phosphatase 58 U/L (39-117); Anion Gap 12 (12-20); Aspartate Amino Transferase 29 U/L (5-37); Bilirubin Total 0.7 mg/dL (0.0-1.0); Blood Urea Nitrogen 53 mg/dL (9-16); Carbon Dioxide 22 mmol/L (22-29); Chloride 105 mmol/L (96-108); Creatinine Clr Calc Pharmacy 18.5; Estimated Glomerular Filt Rate 16; Glucose Random 158 mg/dL (60-115); Sodium 135 mmol/L (135-145); Total Protein 6.6 g/dL (6.5-8.0)
[2023-01-08 22:19] VITALS: BP 116/67; PULSE 56; RESP 20
[2023-01-09] VITALS (17 sets, daily range): BP systolic 89–140; BP diastolic 41–72; PULSE 43–73; RESP 12–21; TEMP 36.1–36.4; O2SAT 96–98; BMI 29.9
--- NOTE | 2023-01-09 | ECG_ITS ---
Test Reason : BRADYCARDIA Blood Pressure : / mmHG Vent. Rate : 045 BPM Atrial Rate : 045 BPM P-R Int : 162 ms QRS Dur : 092 ms QT Int : 464 ms P-R-T Axes : 047 028 034 degrees QTc Int : 401 ms Sinus bradycardia Otherwise normal ECG When compared with ECG of 08-JAN-2023 16:42, Vent. rate has decreased BY 32 BPM Referred By: Kenyetta Vasquez Electronically Signed By:CODY LAMAR
--- NOTE | 2023-01-09 00:33 | ED.GENADULT ---
HPI - General Adult General Chief complaint: General Medical Stated complaint: low blood pressure Time Seen by Provider: 01/09/23 00:15 Source: patient Mode of arrival: ambulatory Limitations: no limitations History of Present Illness HPI narrative: Patient comes to the emergency room complaining of feeling lightheaded and having a low blood pressure at home of 81/53. Patient states that he usually takes lisinopril 40 mg, today he went to see his primary care physician and his lisinopril dose was dropped to 20 mg. Patient denies any chest pain or shortness of breath. At this time, patient is asymptomatic, seems that he feels lightheaded only when he stands up or sits up. Patient denies any recent URI or UTI symptoms, no abdominal pain, nausea vomiting or diarrhea. No fever. Related Data Home Medications Medication Instructions Recorded Confirmed aspirin 81 mg tablet,delayed 81 mg PO DAILY 02/28/20 07/08/22 release atorvastatin 20 mg tablet 20 mg PO DAILY 02/28/20 07/08/22 chlorthalidone 25 mg tablet 25 mg PO DAILY 02/28/20 07/08/22 gabapentin 600 mg tablet 600 mg PO BID 02/28/20 07/08/22 lisinopril 40 mg tablet 40 mg PO DAILY 02/28/20 07/08/22 meloxicam 15 mg tablet 15 mg PO DAILY 02/28/20 07/08/22 diclofenac sodium 1 % topical gel 2 g topical BID 08/08/20 07/08/22 tramadol 50 mg tablet 1 tab PO Q12H PRN Pain 08/08/20 07/08/22 cyclobenzaprine 10 mg tablet 10 mg PO TID 09/10/21 07/08/22 omeprazole 20 mg capsule,delayed 20 mg PO DAILY 09/10/21 07/08/22 release fluoride (sodium) 1.1 % dental appl PO 01/23/22 07/08/22 cream (SF 5000 Plus) mometasone 0.1 % topical cream appl topical DAILY 01/23/22 07/08/22 Allergies Allergy/AdvReac Type Severity Reaction Status Date / Time No Known Allergies Allergy Verified 08/01/22 09:45 [No Known Allergies*] Review of Systems Review of Systems: Constitutional : No Weight loss, No Fever, No Chills, No Night Sweats, No Fatigue, No Malaise ENT/Mouth : No Hearing loss, No Ear Pain, No Nasal Congestion, No Sinus Pain, No Hoarseness, No sore throat, No Rhinorrhea, No Swallowing Difficulty Eyes: No Eye Pain, No Swelling, No Redness, No Foreign Body, No Discharge, No Vision Changes Cardiovascular : No Chest Pain, No SOB, No Dyspnea on Exertion, No Orthopnea, No Edema, No Palpitations, complaining of lightheadedness with standing and sitting, complaining of low blood pressure in the low 80s. Respiratory : No Cough, No Sputum, No Wheezing, No Smoke Exposure, No Dyspnea Gastrointestinal : No Nausea, No Vomiting, No Diarrhea, No Constipation, No abdominal Pain, No Hematochezia, No Melena Genitourinary : no irregular bleeding, No Dysuria, No Urinary Frequency, No Hematuria, No Urinary Incontinence, No Urgency, No Flank Pain, No Urinary Flow Changes, No Hesitancy Musculoskeletal : No joint pain, No Myalgias, No Joint Swelling Skin : No Skin Lesions, No rash Neuro : No Weakness, No Numbness, No Paresthesias, No Loss of Consciousness, No Dizziness, No Headache Psych : No Anxiety/Panic, No Depression, No SI/HI/AH/VH, No Social Issues, Heme/Lymph: No Bruising, No Bleeding,No Lymphadenopathy Endocrine : No Polyuria, No Polydipsia, No Temperature Intolerance [facility] Past Medical History Medical History Nicotine dependence, cigarettes, uncomplicated History of colon polyps Spinal stenosis Hx of chest pain Elevated cholesterol HTN (hypertension) Chronic pain syndrome Disc degeneration, lumbar Spondylosis of lumbar spine Surgical History History of selective injection of anesthetic agent around lumbar nerve root History of colonoscopy History of total left knee replacement (TKR) Social History Social History (Updated 12/20/22 @ 14:12 by María Bowman PA-C) Alcohol intake: former Year quit: 2019 Patient Tobacco Use Status: Current everyday Tobacco user Tobacco use type: Cigarette Years Smoked: (onset 8, 1/2-3/4ppd x 57yrs, 35pyh) Advance Directives: No Advance Directives Information Provided: No Physical Exam ED Vital Signs: Vital Signs - 24 hr 01/08/23 16:16 01/08/23 22:19 Temperature 98.4 F Pulse Rate 82 56 Respiratory Rate 18 20 Blood Pressure 92/52 L 116/67 Pulse Oximetry 96 Oxygen Delivery Method Room Air BMI result Body Mass Index 29.0 Const Other: Appearance: Alert. Oriented X3. No acute distress. Eyes: Pupils equal, round and reactive to light. ENT: Pharynx normal. Neck: Normal inspection. Neck supple. No lymph nodes noted. No crepitus CVS: Normal heart rate and rhythm. Pulses normal. Normal S1 and S2 Respiratory: No respiratory distress. Breath sounds normal. No Wheezing. No rales Abdomen: Soft and nontender. No rigidity. No distention. Skin: Skin warm and dry. Normal skin color. Normal skin turgor. Extremities: No lower extremity edema. No Lacerations. No Rash Neuro: Oriented X 3. No motor deficit. No sensory deficit. Moving all extremities. No slurred speech. CN 2 through 12 grossly intact Psych: calm, cooperative, normal affect Course Course Course Narrative: -patient's current blood pressure is 82 systolic. Patient is lying down in bed, states that he does not feel lightheaded. -patient receiving IV fluids, orthostatics vitals pending Medical Decision Making Medical Decision Making MDM Narrative: -my interpretation of labs, creatinine is 3.77, this is new for the patient. Patient had yesterday labs done and creatinine was 0.97 -lisinopril dose was recently changed. Elevation in creatinine likely secondary to prolonged hypotension. Repeat labs after IV fluids. -patient has no signs of infection, sepsis not suspected, hypotension likely secondary to medication. Lab Data 01/08/23 16:47 01/08/23 16:47 Labs: Lab Results 01/08/23 Range/Units 16:47 WBC 9.5 (4.8-10.8) X10*3/uL RBC 4.19 L (4.60-5.80) X10*6/uL Hgb 12.6 L (14.0-18.0) g/dl Hct 36.9 L D (42.0-52.0) % MCV 88.1 (80.0-98.0) fL MCH 30.1 (27.0-33.0) pg MCHC 34.1 (31.0-36.0) g/dl RDW 14.6 (11.0-16.0) % Plt Count 233 D (160-400) X10*3/uL MPV 9.8 (9.4-12.4) fL Immature Gran % (Auto) 0.3 (0.0-0.4) % Neut % (Auto) 75.2 H (45-73) % Lymph % (Auto) 16.7 L (20-40) % [place] % (Auto) 5.1 (2-11) % Eos % (Auto) 2.4 (0-4) % Baso % (Auto) 0.3 (0-2) % Lymph # (Auto) 1.6 (1.2-4.9) X10*3/uL [place] # (Auto) 0.5 (0.1-1.2) X10*3/uL Eos # (Auto) 0.2 (0.0-0.4) X10*3/uL Baso # (Auto) 0.0 (0.0-0.2) X10*3/uL Abs Immat Gran (auto) 0.03 (0.00-0.03) X10*3/uL Absolute Neuts (auto) 7.1 (2.0-8.3) x10*3/uL Absolute Nucleated RBC 0.000 (0.0-0.012) X10*3/uL Nucleated RBC % (auto) 0.0 (0.0-0.2) /100WBC Sodium 135 (135-145) mmol/L Potassium 4.0 (3.3-5.1) mmol/L Chloride 105 (96-108) mmol/L Carbon Dioxide 22 (22-29) mmol/L Anion Gap 12 (12-20) BUN 53 H (9-16) mg/dL Creatinine 3.77 H (0.5-1.4) mg/dL Estim Creat Clear Calc 18.5 Estimated GFR 16 Random Glucose 158 H (60-115) mg/dL Calcium 9.0 D (8.4-10.2) mg/dL Total Bilirubin 0.7 (0.0-1.0) mg/dL AST 29 (5-37) U/L ALT 35 (0-40) U/L Alkaline Phosphatase 58 (39-117) U/L Troponin I High Sens 4.0 (<3.5-35.0) ng/L Total Protein 6.6 (6.5-8.0) g/dL Albumin 3.8 (3.5-5.0) g/dL Discharge Plan Discharge Clinical Impression: Acute hypotension, Acute kidney injury Patient Disposition: Still a Patient Prescriptions: No Action tramadol 50 mg tablet 1 tab PO Q12H PRN (Reason: Pain) diclofenac sodium 1 % gel 2 g topical BID gabapentin 600 mg tablet 600 mg PO BID atorvastatin 20 mg tablet 20 mg PO DAILY lisinopril 40 mg tablet 40 mg PO DAILY aspirin 81 mg tablet,delayed release (DR/EC) 81 mg PO DAILY chlorthalidone 25 mg tablet 25 mg PO DAILY meloxicam 15 mg tablet 15 mg PO DAILY cyclobenzaprine 10 mg tablet 10 mg PO TID omeprazole 20 mg capsule,delayed release(DR/EC) 20 mg PO DAILY fluoride (sodium) [SF 5000 Plus] 1.1 % cream PO mometasone 0.1 % cream topical DAILY
[2023-01-09] MEDS: 0.9 % Sodium Chloride 2,000 ML 999 ML IVCONT (00:41)
--- NOTE | 2023-01-09 00:46 | PC.NURSE ---
Medicated per Jun and notified RITO Armijo
[2023-01-09 04:19] LABS: Anion Gap 10 (12-20); Blood Urea Nitrogen 41 mg/dL (9-16); Calcium 8.6 mg/dL (8.4-10.2); Carbon Dioxide 22 mmol/L (22-29); Chloride 110 mmol/L (96-108); Creatinine Clr Calc Pharmacy 34.8; Estimated Glomerular Filt Rate 33; Glucose Random 95 mg/dL (60-115); Potassium 4.1 mmol/L (3.3-5.1); Sodium 138 mmol/L (135-145)
--- NOTE | 2023-01-09 04:55 | PM.IMHP ---
History of Present Illness Date of Service: 01/09/23 Chief Complaint: Dizziness This is a 67-year-old male with pertinent history of essential hypertension, mixed hyperlipidemia, gastroesophageal reflux disease, chronic pain syndrome who presents to the emergency department for evaluation of dizziness and lightheadedness. Patient states he took his blood pressure at home and found to be low and presented to the ER. He states that he has been having dizziness, worse when he tries to get up from a seated position. Patient states that he felt like he would almost pass out due to to the lightheadedness. He saw his PCP 1 day prior to presentation and was asked to reduce his lisinopril dose from 40 mg to 20 mg. Patient continued taking 40 mg dosage as he did not receive refill for 20 mg from pharmacy. States he has been maintaining adequate p.o. intake. Denies nausea, vomiting or diarrhea. No fever, chills, chest discomfort, palpitations, shortness of breath, abdominal pain, changes in urinary or bowel habits. In the emergency department, patient's blood pressure found to be low and creatinine found to be elevated Review of Systems Constitutional: Constitutional: Reports no additional constitutional complaints ENT: Reports dizziness Cardiovascular: Cardiovascular: Reports no additional cardiovascular complaints Respiratory: Respiratory: Reports no additional respiratory complaints Gastrointestinal: Gastrointestinal: Reports no additional gastrointestinal complaints Genitourinary: Genitourinary: Reports no additional male genitourinary complaints Neurologic: Reports dizziness [facility] Medical History Nicotine dependence, cigarettes, uncomplicated History of colon polyps Spinal stenosis Hx of chest pain Elevated cholesterol HTN (hypertension) Chronic pain syndrome Disc degeneration, lumbar Spondylosis of lumbar spine Surgical History History of selective injection of anesthetic agent around lumbar nerve root History of colonoscopy History of total left knee replacement (TKR) Social History Alcohol intake: former Year quit: 2019 Patient Tobacco Use Status: Current everyday Tobacco user Tobacco use type: Cigarette Years Smoked: (onset 8, 1/2-3/4ppd x 59yrs, 35pyh) Advance Directives: No Advance Directives Information Provided: No Meds Allergies Allergy/AdvReac Type Severity Reaction Status Date / Time No Known Allergies Allergy Verified 08/01/22 09:45 [No Known Allergies*] Home Medications Medication Instructions Recorded Confirmed Last Taken Type aspirin 81 mg tablet,delayed 81 mg PO DAILY 02/28/20 07/08/22 07/31/20 08:00 History release atorvastatin 20 mg tablet 20 mg PO DAILY 02/28/20 07/08/22 Unknown History chlorthalidone 25 mg tablet 25 mg PO DAILY 02/28/20 07/08/22 Unknown History gabapentin 600 mg tablet 600 mg PO BID 02/28/20 07/08/22 Unknown History lisinopril 40 mg tablet 40 mg PO DAILY 02/28/20 07/08/22 Unknown History meloxicam 15 mg tablet 15 mg PO DAILY 02/28/20 07/08/22 Unknown History diclofenac sodium 1 % topical gel 2 g topical BID 08/08/20 07/08/22 Unknown History tramadol 50 mg tablet 1 tab PO Q12H PRN Pain 08/08/20 07/08/22 Unknown History cyclobenzaprine 10 mg tablet 10 mg PO TID 09/10/21 07/08/22 Unknown History omeprazole 20 mg capsule,delayed 20 mg PO DAILY 09/10/21 07/08/22 Unknown History release fluoride (sodium) 1.1 % dental appl PO 01/23/22 07/08/22 Unknown History cream (SF 5000 Plus) mometasone 0.1 % topical cream appl topical DAILY 01/23/22 07/08/22 Unknown History Physical Exam Vital Signs and Narrative: Vital Signs: Last Vital Signs Temp 98.4 F 01/08/23 16:16 Pulse 73 01/09/23 03:36 Resp 17 01/09/23 03:36 BP 120/63 01/09/23 03:36 Pulse Ox 98 01/09/23 03:36 O2 Del Method Room Air 01/09/23 03:36 BMI result Body Mass Index 29.0 Middle-aged male lying in bed in no distress Neck supple, no JVD Regular rate and rhythm, S1-S2 heard Regular breath sounds bilaterally, no wheezing or crackles appreciated Abdomen soft nontender, no guarding, no rigidity Patient is awake, alert and oriented to self, place, time and person ; no focal motor deficit Psych: Normal mood No pedal edema Results Labs 01/08/23 16:47 01/09/23 04:00 Labs: Laboratory Results - last 24 hr 01/08/23 01/09/23 16:47 04:00 MCV 88.1 MCH 30.1 MCHC 34.1 RDW 14.6 Plt Count 233 D MPV 9.8 Immature Gran % (Auto) 0.3 Neut % (Auto) 75.2 H Lymph % (Auto) 16.7 L [place] % (Auto) 5.1 Eos % (Auto) 2.4 Baso % (Auto) 0.3 Lymph # (Auto) 1.6 [place] # (Auto) 0.5 Eos # (Auto) 0.2 Baso # (Auto) 0.0 Abs Immat Gran (auto) 0.03 Absolute Neuts (auto) 7.1 Absolute Nucleated RBC 0.000 Nucleated RBC % (auto) 0.0 Anion Gap 12 10 L Estim Creat Clear Calc 18.5 34.8 Estimated GFR 16 33 Random Glucose 158 H 95 Calcium 9.0 D 8.6 Total Bilirubin 0.7 AST 29 ALT 35 Alkaline Phosphatase 58 Total Protein 6.6 Albumin 3.8 Assessment and Plan (1) Acute kidney injury: Status: Acute Plan This is a 67-year-old male with pertinent history of essential hypertension, mixed hyperlipidemia, gastroesophageal reflux disease, chronic pain syndrome who presents to the emergency department for evaluation of dizziness and lightheadedness. #. Pre syncope due to orthostatic hypotension. Resuscitated with IV crystalloids. Repeat orthostatic vital signs in a.m.. #. Acute kidney injury stage III, nonoliguric. Improving with IV crystalloids. Continue to monitor and avoid nephrotoxins. #. Essential hypertension. Hold lisinopril and chlorthalidone in the setting of above #. Mixed hyperlipidemia. On statin #. Gastroesophageal reflux disease: On PPI Med rec pending DVT prophylaxis: Lovenox Full code Admit as inpatient and will require two night minimum hospital stay for close monitoring of kidney function and blood pressure. Time Spent With Patient Time: Total time managing care of this patient today ____ minutes. Quality Stroke Does the patient have a stroke diagnosis?: No VTE Prior VTE?: No VTE Risk Level:: Medical - moderate - high VTE Device Contraindication: Treatment Not Indicated VTE Drug Contraindication: N/A - Med Ordered
[2023-01-09 06:21] LABS: Alanine Aminotransferase 30 U/L (0-40); Albumin Level 3.5 g/dL (3.5-5.0); Alkaline Phosphatase 54 U/L (39-117); Anion Gap 10 (12-20); Aspartate Amino Transferase 21 U/L (5-37); Bilirubin Total 0.7 mg/dL (0.0-1.0); Blood Urea Nitrogen 40 mg/dL (9-16); Calcium 8.7 mg/dL (8.4-10.2); Carbon Dioxide 22 mmol/L (22-29); Chloride 110 mmol/L (96-108); Creatinine Clr Calc Pharmacy 38.2; Estimated Glomerular Filt Rate 37; Glucose Random 89 mg/dL (60-115); Potassium 4.3 mmol/L (3.3-5.1); Sodium 138 mmol/L (135-145); Total Protein 6.2 g/dL (6.5-8.0)
--- NOTE | 2023-01-09 06:26 | MHC.EDTECH ---
PT has a low BP RN made aware
--- NOTE | 2023-01-09 07:12 | PC.NURSE ---
awake and eating breakfast. vss, awaiting bed assignment at this time.
[2023-01-09 09:16] LABS: Iron 50 mcg/dL (45-160); Percent Iron Saturation 28 % (15-50); Total Iron Binding Capacity 176 mcg/dL (228-428); Unsaturated Iron Binding 126 ug/dL
--- NOTE | 2023-01-09 09:27 | PHA.MEDREC ---
Pharmacy Consult ? Medication Reconciliation Pharmacy has completed the medication reconciliation.spoke to patient and verified medications. Patient also uses [facility] and atorvastatin + chlorthalidone + gabapentin are active medications per Jackeline at [facility]. Baclofen was filled at [facility] on 01/07/23 but patient can't confirm he's taking it.
[2023-01-09] MEDS: 0.9 % Sodium Chloride Flush 3 ML SYRINGE IVFLUSH ×2 (09:28→20:57)
[2023-01-09] MEDS: 0.9 % Sodium Chloride 1,000 ML 999 ML IV (09:29)
[2023-01-09] MEDS: Midodrine HCl 5 MG TABLET PO (09:33)
[2023-01-09 11:47] LABS: Appearance Urine Clear; Color Urine Yellow; Glucose Urine UA Negative (Negative); Leukocyte Esterase Urine Negative (Negative); Nitrite Urine Negative (Negative); PH 5.5 (5.0-9.0); UMIC TRIGGER UACC YES; Urine Blood Trace (Negative); Urine Ketones Negative (Negative); Urine Protein Negative (Neg-Trace)
[2023-01-09 11:52] LABS: Bacteria Urine None Seen (None Seen); Hyaline Casts Urine 0-2 /LPF (0-2); RBC Urine 0-2 /HPF (0-2); Squamous Epithelial Cell Urine 0-2 /HPF (0-2); WBC Urine 0-5 /HPF (0-5)
--- NOTE | 2023-01-09 12:31 | PC.NURSE ---
Patient c/o right sided abdominal pain tele: sinus milton 39-40's now usually 50's when he ambulates goes up to 70 but drops back down to 50's Dr. Vasquez notified. Also sent picture of rythym in ekg via tiger text
--- NOTE | 2023-01-09 12:39 | PM.EVENT ---
Event Note Date of Service: 01/09/23 Event Note: Seen and evaluated feels less dizzy this morning Noticed to have asymptomatic bradycardia check EKG continue IVF restart home meds and avoid nephrotoxic ones Time Spent With Patient Time: Total time managing care of this patient today ____ minutes.
[2023-01-09] MEDS: Gabapentin 100 MG CAPSULE 200 MG PO (20:55)
[2023-01-10] VITALS (10 sets, daily range): BP systolic 110–158; BP diastolic 59–80; PULSE 44–97; RESP 18; TEMP 36.1–36.4; O2SAT 98–100
[2023-01-10] MEDS: Enoxaparin Sodium 40 MG/0.4 ML SYRINGE SUBCUT (05:21)
[2023-01-10 06:25] LABS: MANUAL DIFF FLAG NO
[2023-01-10 06:40] LABS: Basophils Percent Auto 0.4 % (0-2); Eosinophils Absolute Auto 0.3 X10*3/uL (0.0-0.4); Eosinophils Percent Auto 4.5 % (0-4); Hemoglobin 12.9 g/dl (14.0-18.0); Imm Gran Abs Auto 0.02 X10*3/uL (0.00-0.03); Imm Gran Pct Auto 0.3 % (0.0-0.4); Lymphocytes Absolute Auto 1.5 X10*3/uL (1.2-4.9); Lymphocytes Percent Auto 20.6 % (20-40); Mean Corpuscular HGB Conc 32.3 g/dl (31.0-36.0); Mean Corpuscular Hemoglobin 29.7 pg (27.0-33.0); Mean Platelet Volume 10.4 fL (9.4-12.4); Monocytes Absolute Auto 0.5 X10*3/uL (0.1-1.2); Monocytes Percent Auto 6.4 % (2-11); Neutrophils Percent Auto 67.8 % (45-73); Platelet Count 234 X10*3/uL (160-400); Red Blood Count 4.35 X10*6/uL (4.60-5.80); Red Cell Distribution Width 14.6 % (11.0-16.0); White Blood Count 7.3 X10*3/uL (4.8-10.8)
[2023-01-10 06:45] LABS: Anion Gap 11 (12-20); Blood Urea Nitrogen 24 mg/dL (9-16); Calcium 9.6 mg/dL (8.4-10.2); Carbon Dioxide 26 mmol/L (22-29); Chloride 109 mmol/L (96-108); Estimated Glomerular Filt Rate > 60; Glucose Random 96 mg/dL (60-115); Potassium 4.5 mmol/L (3.3-5.1); Sodium 141 mmol/L (135-145)
[2023-01-10] MEDS: Atorvastatin Calcium 20 MG TABLET PO (08:33)
[2023-01-10] MEDS: Gabapentin 100 MG CAPSULE 200 MG PO ×2 (08:34→21:09)
[2023-01-10] MEDS: Aspirin Enteric Coated 81 MG TABLET.DR PO (08:34)
[2023-01-10] MEDS: 0.9 % Sodium Chloride Flush 3 ML SYRINGE IVFLUSH ×3 (08:36→21:10)
--- NOTE | 2023-01-10 13:03 | HO.PM.IMPN ---
Subjective Subjective Date of Service: 01/10/23 Interval History: Seen and evaluated today Feels better Kidney function improving BP still dropping upon standing Review of Systems Review of Systems: Yes all other systems are reviewed and are negative Physical Exam Vital Signs: Vital Signs: Last Vital Signs Temp 97.2 F 01/10/23 07:18 Pulse 48 L 01/10/23 10:10 Resp 18 01/10/23 07:18 BP 127/59 L 01/10/23 10:10 Pulse Ox 98 01/10/23 10:10 O2 Del Method Room Air 01/10/23 07:18 O2 Flow Rate 97 01/09/23 20:00 BMI result Body Mass Index 29.9 Const: Other: Constitutional : Awake, interactive, not in distress Neck : Normal inspection, Supple Cardiovascular : RRR, no JVP, no lower extremity edema Respiratory : good bilateral air entry, no crackles, wheezes or rhonchi Gastrointestinal: soft, lax, Normal bowel sounds, Non tender Skin : Warm, Dry Neurological : Alert & oriented x3, No focal deficit Objective Data Active Medications Acetaminophen (Acetaminophen 325 Mg Tablet) 650 mg PO Q6H PRN PRN Reason: Pain, Mild (Pain Scale 1-3) Aspirin (Aspirin Enteric Coated 81 Mg Tablet.) 81 mg PO DAILY [facility] Last Admin: 01/10/23 08:34 Dose: 81 mg Documented By: RICK Atorvastatin Calcium (Atorvastatin Calcium 20 Mg Tablet) 20 mg PO DAILY [facility] Last Admin: 01/10/23 08:33 Dose: 20 mg Documented By: RICK Enoxaparin Sodium (Enoxaparin Sodium 40 Mg/0.4 Ml Syringe) 40 mg SUBCUT Q24H [facility] Last Admin: 01/10/23 05:21 Dose: 40 mg Documented By: BILLIE Gabapentin (Gabapentin 100 Mg Capsule) 200 mg PO BID [facility] Last Admin: 01/10/23 08:34 Dose: 200 mg Documented By: RICK Melatonin (Melatonin 3 Mg Tablet) 6 mg PO BEDTIME PRN PRN Reason: Insomnia Ondansetron HCl (Ondansetron Hcl 4 Mg/2 Ml Vial) 4 mg IVPUSH Q8H PRN PRN Reason: Nausea and Vomiting Sodium Chloride (0.9 % Sodium Chloride Flush 3 Ml Syringe) 3 ml IVFLUSH QSHIFT [facility] Last Admin: 01/10/23 08:36 Dose: 3 ml Documented By: RICK Labs 01/10/23 05:58 01/10/23 05:58 Labs: Laboratory Results - last 24 hr 01/10/23 05:58 MCV 92.0 MCH 29.7 MCHC 32.3 RDW 14.6 Plt Count 234 MPV 10.4 Immature Gran % (Auto) 0.3 Neut % (Auto) 67.8 Lymph % (Auto) 20.6 [place] % (Auto) 6.4 Eos % (Auto) 4.5 H Baso % (Auto) 0.4 Lymph # (Auto) 1.5 [place] # (Auto) 0.5 Eos # (Auto) 0.3 Baso # (Auto) 0.0 Abs Immat Gran (auto) 0.02 Absolute Neuts (auto) 5.0 Absolute Nucleated RBC 0.000 Nucleated RBC % (auto) 0.0 Anion Gap 11 L Estim Creat Clear Calc 59.0 Estimated GFR > 60 Random Glucose 96 Calcium 9.6 D Assessment and Plan (1) Acute kidney injury: Status: Acute (2) Acute hypotension: Status: Acute Plan This is a 67-year-old male with pertinent history of essential hypertension, mixed hyperlipidemia, gastroesophageal reflux disease, chronic pain syndrome who presents to the emergency department for evaluation of dizziness and lightheadedness. # Near-syncope due to orthostatic hypotension. Resuscitated with IV crystalloids with good response orthostatic vital signs to follow Hold BP meds # Acute kidney injury Improving with IV crystalloids. Continue to monitor and avoid nephrotoxins. # Essential hypertension. running soft Hold lisinopril and chlorthalidone in the setting of above # Mixed hyperlipidemia statin # Gastroesophageal reflux disease PPI DVT prophylaxis: Joanx will require overnight hospital stay for close monitoring of kidney function and blood pressure. Time Spent With Patient Time: Total time managing care of this patient today ____ minutes. Quality Stroke Does the patient have a stroke diagnosis?: No VTE Prior VTE?: No VTE Risk Level:: Medical - moderate - high VTE Device Contraindication: Treatment Not Indicated VTE Drug Contraindication: N/A - Med Ordered
[2023-01-10] MEDS: Melatonin 3 MG TABLET 6 MG PO (21:10)
[2023-01-11] VITALS: BP 138/67; PULSE 53
[2023-01-11] MEDS: Enoxaparin Sodium 40 MG/0.4 ML SYRINGE SUBCUT (06:04)
[2023-01-11 07:46] VITALS: BP 131/60; BP 151/73; PULSE 50; PULSE 53; RESP 20; TEMP 36; O2SAT 97
[2023-01-11] MEDS: Gabapentin 100 MG CAPSULE 200 MG PO (08:57)
[2023-01-11] MEDS: Atorvastatin Calcium 20 MG TABLET PO (08:57)
[2023-01-11] MEDS: Aspirin Enteric Coated 81 MG TABLET.DR PO (08:57)
[2023-01-11] MEDS: 0.9 % Sodium Chloride Flush 3 ML SYRINGE IVFLUSH (08:57)
[2023-01-11 09:14] LABS: Anion Gap 15 (12-20); Blood Urea Nitrogen 18 mg/dL (9-16); Calcium 10.7 mg/dL (8.4-10.2); Carbon Dioxide 26 mmol/L (22-29); Chloride 102 mmol/L (96-108); Creatinine Clr Calc Pharmacy 60.5; Estimated Glomerular Filt Rate > 60; Glucose Random 88 mg/dL (60-115); Potassium 4.3 mmol/L (3.3-5.1); Sodium 139 mmol/L (135-145)
--- NOTE | 2023-01-11 10:34 | PM.DS ---
DS: Providers Provider Date of Service: 01/11/23 Date of admission: 01/09/23 04:54 Primary care physician: Andriy Gomez MD DS: Diagnosis Discharge Diagnosis (1) Acute kidney injury: Status: Acute (2) Acute hypotension: Status: Acute (3) HTN (hypertension): Status: Acute DS: Summary Hospital Course Hospital Course: Admission note HPI This is a 67-year-old male with pertinent history of essential hypertension, mixed hyperlipidemia, gastroesophageal reflux disease, chronic pain syndrome who presents to the emergency department for evaluation of dizziness and lightheadedness. Patient states he took his blood pressure at home and found to be low and presented to the ER. He states that he has been having dizziness, worse when he tries to get up from a seated position. Patient states that he felt like he would almost pass out due to to the lightheadedness. He saw his PCP 1 day prior to presentation and was asked to reduce his lisinopril dose from 40 mg to 20 mg. Patient continued taking 40 mg dosage as he did not receive refill for 20 mg from pharmacy. States he has been maintaining adequate p.o. intake. Denies nausea, vomiting or diarrhea. No fever, chills, chest discomfort, palpitations, shortness of breath, abdominal pain, changes in urinary or bowel habits. In the emergency department, patient's blood pressure found to be low and creatinine found to be elevated Hospital course # Near-syncope due to orthostatic hypotension as he tested positive in ED. Resuscitated with IV crystalloids with good response as orthostatic vital normalized. His BP medications were discontinued. started on Amlodipine prior to discharge with no reported dizziness. he was able to participate with physical therapy with no reported dizziness or need of therapy at discharge. # Acute kidney injury with Creatinine of 3.77 on admission secondary to prerenal cause. responded well to IV fluids and holding nephrotoxic agents as Cr improved back to baseline of 1.2. will repeat as outpatient. Discontinue both Lisinopril and Chlorathalidone Start Amlodipine Monitor blood pressure readings for next week and report them to PCP for further adjustments of your medications To repeat blood test next week Time Spent with Patient Time attestation: Total time managing care of this patient today ____ minutes. Discharge coordination time: Greater than 30 minutes Quality: Safe Use of Opioids Does Pt have an Active Cancer Diagnosis on the Problem List?: No Quality: Stroke Does the patient have a stroke diagnosis?: No Physical Exam Vital Signs: Vital Signs: Last Vital Signs Temp 96.8 F 01/11/23 07:46 Pulse 53 01/11/23 07:46 Resp 20 01/11/23 07:46 BP 151/73 H 01/11/23 07:46 Pulse Ox 97 01/11/23 07:46 O2 Del Method Room Air 01/11/23 07:46 O2 Flow Rate 97 01/09/23 20:00 BMI result Body Mass Index 29.9 Const: Other: Constitutional : Awake, interactive, not in distress Neck : Normal inspection, Supple Cardiovascular : RRR, no JVP, no lower extremity edema Respiratory : good bilateral air entry, no crackles, wheezes or rhonchi Gastrointestinal: soft, lax, Normal bowel sounds, Non tender Skin : Warm, Dry Neurological : Alert & oriented x3, No focal deficit DS: Data Data Completed and Pending Labs on day of discharge: Laboratory Results - last 24 hr 01/11/23 07:59 Sodium 139 Potassium 4.3 Chloride 102 Carbon Dioxide 26 Anion Gap 15 BUN 18 H Creatinine 1.17 Estim Creat Clear Calc 60.5 Estimated GFR > 60 Random Glucose 88 Calcium 10.7 H D Discharge Plan Discharge Anticipated Discharge Date/Time: 01/11/23 10:28 Patient Disposition: Home, Self-Care Discharge Diagnosis: Acute kidney injury Low blood pressure Referrals: Name,MD Andriy [Primary Care Provider] - 1 Week Discharge Medications: New amlodipine 5 mg tablet 5 mg PO DAILY Qty: 30 0RF Continued diclofenac sodium 1 % gel 2 g topical BID baclofen 10 mg Tablet 10 mg PO BID gabapentin 600 mg tablet 600 mg PO BID atorvastatin 20 mg tablet 20 mg PO DAILY aspirin 81 mg tablet,delayed release (DR/EC) 81 mg PO DAILY Discontinued lisinopril 20 mg Tablet 20 mg PO DAILY chlorthalidone 25 mg tablet 25 mg PO DAILY Discharge Orders: Discharge Order (Routine); Ordered 01/11/23 Ordered By: Kenyetta Vasquez Diet: Advance to usual diet Activity on Discharge: As tolerated Stand Alone Forms: Patient Portal Discharge page Other Ambulatory Orders: Basic Metabolic Panel (Routine) Timeframe: 5 Days Facility: [facility] - Location: Laboratory Ordered By: Kenyetta Vasquez Care Plan Goals: Read below Health Concerns: Read below Plan of Treatment: Read below Assessment: Found to have acute kidney injury from blood pressure medicaitons with associated low blood pressures. Treated with IV fluids and holding blood pressure medications with good result as kidney function improved back to baseline. Discontinue both Lisinopril and Chlorathalidone Start Amlodipine Monitor blood pressure readings for next week and report them to PCP for further adjustments of your medications To repeat blood test next week
[2023-01-11] MEDS: amLODIPine Besylate 5 MG TABLET PO (11:11)
--- NOTE | 2023-01-11 11:20 | MHC.CM.PN ---
PT WILL DC HOME WITH NO SERVICES VIA PRIVATE TRANSPORT
== END 2023-01-11 11:44 | disposition home or self-care (01) | DRG 312 ==
LOC: HO.ED 01-09 05:05 → HO.EDOVER 01-09 05:06 → HO.S3 01-09 16:14
PROVIDERS: Registered Nurse Emergency; Admitting Provider Student in an Organized Health Care Education/Training Program; Emergency Provider Emergency Medicine; PCP Internal Medicine Geriatric Medicine; Visit Provider Student in an Organized Health Care Education/Training Program
DX: I95.1 Orthostatic hypotension (principal); N17.9 Acute kidney failure, unspecified; I10 Essential (primary) hypertension; Z71.6 Tobacco abuse counseling; R00.1 Bradycardia, unspecified; E78.2 Mixed hyperlipidemia; K21.9 Gastro-esophageal reflux disease without esophagitis; F17.210 Nicotine dependence, cigarettes, uncomplicated; Z79.82 Long term (current) use of aspirin; Z79.899 Other long term (current) drug therapy
CPT/HCPCS: 36415; 80048; 80053; 81001; 83540; 84484; 85025; 93005; 97161; 99285; J1650

== ENCOUNTER → 2023-01-09 04:54 | Outpatient (BNV) | payer OTHER, SELFPAY | PROVIDERS: Admitting Provider Student in an Organized Health Care Education/Training Program; Emergency Provider Emergency Medicine; PCP Internal Medicine Geriatric Medicine; Visit Provider Student in an Organized Health Care Education/Training Program | DX: N17.9 Acute kidney failure, unspecified (principal); I95.9 Hypotension, unspecified; I10 Essential (primary) hypertension | CPT/HCPCS: 99222; 99232; 99239; 99499 ==

== ENCOUNTER 2023-03-24 10:41 | Outpatient (AMB) | payer OTHER, SELFPAY ==
--- NOTE | 2023-03-24 11:25 | A.OFFVIS_ITS ---
Intake Vital Signs 03/24/23 11:30 Height 5 ft 6 in Weight 180 lb 6 oz BMI 29.1 BP 140/82 H Blood Pressure Location Lt brachial Position Sitting Respiration 14 Pulse 88 Pulse Source Pulse Oximeter Pulse Oximetry (%) 94 Oxygen Delivery Method Room Air Intake Visit Reasons: MILD PROCEDURE DISCUSSION Allergies No Known Allergies [No Known Allergies*] Allergy (Verified 03/24/23 11:30) HPI HPI Comments History of Present Illness Details Tomas? is in the office for the follow-up with severe pain complain on 01/28. About 1 year ago he received transforaminal L4-5 bilateral epidural steroid injection which resulted in significant pain decrease. Originally it was scheduled as interlaminar epidural steroid injection at L4-5 level however the axis through the interlaminar space was extremely difficult. I was able to reach epidural space bilaterally transforaminal a and patient reported significant pain improvement. He also in the past complaint on pain in the groin and he exhibited signs of foraminal and interlaminar stenosis at L2-L3. He was offered mild procedure however now he does not complain on pain in the groin at all. He complains on pain in bilateral lower extremities none radiated from the lower back. This is his spinal stenosis at L4-5. Of for him consultation of neurosurgeon and he refused. He requests me to perform bilateral transforaminal epidural steroid injections was performed on him 1 year ago. I will schedule him for the procedure accordingly. At the same time I told him that if he wants to I can consider spinal cord stimulator Nevro to help treating his pain. Patient decided not to go this way at this time. : Prior: after the performed L2-L3 L4 dorsal ramus L5 bilateral medial branch block.? Therapeutic with steroids.? He reported 100% pain relief for the next 10 days after the injection.? However his pain came back after that.? Now he experiences pain as bad as it was pre injection.? Before that he had diagnostic medial branch L2-L3 L4 does ramus L5 injection which resulted in 70% pain relief for up to 1 week.? Given an option of the radiofrequency ablation versus therapeutic steroid injections he chose to go for therapeutic steroid injections. However attention was instructed today that the patient has on the MRI significant lumbar spinal stenosis at L4-5 level.? I offered him to perform interlaminar epidural steroid injection at L4-5 level to help his pain.? Alternatively I offered him to send him to neurosurgical evaluation. He was in this office in [address] Sevilla.C/o pain in lower back without any radiation.? He reported that he was treated in [facility] recently with some injections. ? By the records appear available to us this patient received numerous transforaminal epidural steroid [facility], as well as facet joint injections, as well as caudal epidural steroid injections, as well as trigger point injections.? On the EMG which is performed in 2008 this patient had electrodiagnostic evidence suggestive of lumbar radiculopathy due to abnormal spontaneous activity in the middle and lower paraspinal muscles.? Dr. Sevilla's ? Note was evident of pain radiating from the patient's back into lower extremities.? However today patient does not present with complains like this.. He reports that he got about 2-3 and sometimes four-month pain relief after the injections. 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 He has trialed medications and recently PT that exacerbated his pain. He is unable to perform his HEP secondary to pain. his pain ranges from 2-10/1, worsened with all activity and improved with rest. He denies any weakness, numbness, tingling, gait disturbance, b/b dysfunction, fevers, chills, or wt change. [facility] Medical History Nicotine dependence, cigarettes, uncomplicated History of colon polyps Spinal stenosis Hx of chest pain Elevated cholesterol HTN (hypertension) Chronic pain syndrome Disc degeneration, lumbar Spondylosis of lumbar spine Surgical History History of selective injection of anesthetic agent around lumbar nerve root History of colonoscopy History of total left knee replacement (TKR) Social History Household Members: Significant Other Housing: House Do you presently have visiting nurse or other home services: Yes (stated every 6 month for checkup) Alcohol intake: former Year quit: 2019 Patient Tobacco Use Status: Current everyday Tobacco user Tobacco use type: Cigarette Cigarettes Per Day: 8 Years Smoked: (onset 8, 1/2-3/4ppd x 59yrs, 35pyh) Second Hand Smoke Exposure: No service: No Review of Systems Const All systems reviewed & are unremarkable except as noted in HPI and below ENT Reports Normal hearing present Neuro Reports Normal hearing present, Denies Abnormal speech present, Denies confusion and Denies Sensory deficit (Neuro) Psych Denies confusion Physical Exam Vital Signs: Last Vital Signs Pulse 88 03/24/23 11:30 Resp 14 03/24/23 11:30 BP 140/82 H 03/24/23 11:30 Pulse Ox 94 03/24/23 11:30 Oxygen Delivery Method Room Air 03/24/23 11:30 BMI result Body Mass Index 29.1 Const General: No confusion Nutritional Appearance: obese Orientation/consciousness: No confusion Limitations: language barrier and ambulation with cane Eyes General: appearance normal, both eyes and all related structures Visual Medina: normal visual medina by confrontation Pupils: Equal, round and reactive pupils present EOM: EOMs intact bilaterally Neck Neck: Yes full ROM, Yes no lymphadenopathy, Yes supple and No anterior neck swelling Chest Chest palpation & inspection: normal inspection of the chest Resp Effort & Inspection: normal respiratory effort, able to speak in complete sentences, no audible wheezes, no cough, no respiratory distress and symmetric chest movement Cardio Jugular venous distension: no JVD Bruits: no carotid bruits Peripheral pulses: radial pulses present, posterior tibial pulses present and dorsalis pedis present GI Inspection: Yes normal to inspection, No distended and Yes obesity Palpation (GI): Soft to palpation General: Yes no CVA tenderness Back/Spine/Pelvis Other: Patient with significant lower back pain with movements or walking, able to stand on heels and tip toes with moderate difficulty due to pain. Can flex forward up to 50-60 degrees and extend to 5-10 degrees before experiencing moderate to severe lumbar pain. Facet loading positive bilaterally, ROM limited to pain. Demonstrates 5/5 left and 4/5 right strength of quadriceps bilaterally as well as 5/5 left and 4/5 right flexion/dorsiflexion of bilateral feet against resistance. 2+ pedal pulses bilaterally. Straight leg rise with dorsiflexion positive on the right. Mild groin pain with right internal and external hip rotations. SIJ exam deferred due to exacerbation of back pain. Ambulates slowly with antalgic gait, uses cane. Back: no CVA tenderness Cervical Spine: cervical ROM normal and No Cervical spine tenderness Pelvis: buttock tenderness on the right Skin General skin exam: no rashes or lesions noted Neuro General: No confusion Cranial nerves: Yes Equal, round and reactive pupils present and Yes Normal hearing present Cognition (Neuro): normal cognition Speech: No Abnormal speech present Gait exam (Neuro): Antalgic gait present and Assistive device used Motor exam (neuro): no tremor noted and Motor abnormalities not present Sensory Exam: No Sensory deficit (Neuro) Extrem General: Yes capillary refill normal, Yes no clubbing, cyanosis or edema and Yes no calf tenderness Results Reviewed Results Reviewed: MRI lumbar spine 11/05/2021. There is transitional anatomy. For the purpose of this report the same counting system is used as the previous study presuming that S1 is partially lumbarized sharing a rudimentary disc with S2. There are are articulating transverse processes at L1 chronic compression deformity of L1 degenerative anterolisthesis of L4 on L5. Progressive posterior disc volume loss at L1-L2 moderate to severe disc volume loss at L2-L3 and severe left-sided disc volume loss at L3-L4. Similar moderate to severe disc volume loss at L5-S1. There are large multilevel endplate osteophytes. Diffusely heterogeneous marrow signal is again noted. There is marrow edema within L2-L3 L4 and L5 vertebral bodies, most likely Modic type 1 endplate signal changes which are progressed in comparison to the prior exam. There Modic type 1 signal changes at T12-L1 and T10-T11 as well. Conus terminates at L1-L2 level. Disc osteophyte and hypertrophic facet arthropathy result in moderate left Saint 90 10 moderate left T10-T11 moderate to severe left T11-12 moderate right T10- T11 and severe right T11-T12 foraminal stenosis all similar to prior exam. L1-L2: Shallow left paracentral disc protrusion that results in similar posterior deflection of the traversing left L2 nerve root within the left subarticular zone. Background disc osteophyte and bilateral facet arthropathy and ligamentum flavum thickening. No central canal stenosis. There is mild bilateral foraminal encroachment L2-L3: Disc osteophyte complex eccentric to the left side and there is moderate bilateral facet arthropathy and ligamentum flavum thickening. Finding along with prominent dorsal epidural fat result in worsening moderate central canal stenosis, left subarticular zone stenosis with mass effect on traversing left L3 nerve root, and worsening moderate right foraminal stenosis with mass effect on the exiting right L2 nerve root. [id number] min left foraminal stenosis as well. L3-L4: Diffuse disc osteophyte complex and severe left and moderate right facet arthropathy and ligamentum flavum thickening. Prominent dorsal epidural fat. Finding in concert result in similar moderate central canal stenosis left greater than right subarticular was of stenosis and mass effect on the traversing left L4 nerve root. Moderate to severe left foraminal stenosis with mass effect on exiting left L3 nerve root. The previously seen inferiorly migrated left paracentral disc extrusion at this level is decreasing in size resulting in degrees mass effect on traversing left L4 nerve root. L4-5: Stable grade 1 degenerative anterolisthesis. Uncovertebral disc and severe bilateral facet arthropathy and ligamentum flavum thickening. Finding in concert result in similar appearing severe central canal stenosis severe bilateral subarticular zone stenosis with compression of the traversing L5 nerve roots bilaterally. [id number] bilateral foraminal stenosis. L5-S1: Diffuse disc osteophyte complex eccentric to the right side as well as moderate right greater than the left hypertrophic facet arthropathy. Finding in consult result in seem really moderate right-sided foraminal stenosis with mass effect of exiting right L5 nerve root. Assessment & Plan Assessment & Plan (1) Spondylosis of lumbar spine: Code(s): M47.816 - Spondylosis without myelopathy or radiculopathy, lumbar region (2) Disc degeneration, lumbar: Code(s): M51.36 - Other intervertebral disc degeneration, lumbar region (3) Spinal stenosis: Code(s): M48.00 - Spinal stenosis, site unspecified Plan Patient has persistent moderate to severe pain in the right L2-L3 and L4-L5 distribution which affects his daily activities, mobility, and sleep at night as well as not being able to participate in PT or HEP. His last MRI 2017 was significant for L4-5 grade 1 anterolisthesis with uncovering of intervertebral disc and superimposed diffuse disc bulging as well as ligament/ facet degeneration and prominent dorsal epidural fat resulting in moderate to severe spinal canal stenosis and crowding of the nerve root at this level. The access through the interlaminar L4-5 epidural interspace is very difficult. Transforaminal s L4-5 were performed in the past. I think considering his chronic pain in the back Nevro spinal cord stimulator will be good alternative to repeat of the epidural steroid injections. Hip x-ray which was performed to rule out osteoarthritis of the right hip came back negative for any changes in the hip area. Today he does not complain on any groin pain. He reports pain in the lower back radiating on the posterior and lateral sides of bilateral lower extremities. I offered him again to perform transforaminal epidural steroid injection L4-5. The patient has transitional anatomy. He has lumbarization of S1. The patient also has significant Modic type 1 changes at L3-L4 and L5-S1. This is from MRI on 2021. I will schedule him for transforaminal epidural steroid injection. However if this time transforaminal epidural steroid injection will not be working I will consider intercept procedure for this patient. Nevro spinal cord stimulator will be last resort to treat this patient's pain.. Patient Instructions: I here by testify that I spent 30 minutes in conversation with this patient as well as evaluating his imaging, planning his care and organizing his note. Coding Level of Care Code Est Pt Level 4 (51253) Diagnoses Spondylosis of lumbar spine M47.816 Disc degeneration, lumbar M51.36 Spinal stenosis M48.00
[2023-03-24 11:30] VITALS: BP 140/82; PULSE 88; RESP 14; O2SAT 94; BMI 29.1
== END 2023-03-24 11:50 | disposition home or self-care (01) ==
PROVIDERS: PCP Internal Medicine Geriatric Medicine; Visit Provider Anesthesiology
DX: M47.816 Spondylosis without myelopathy or radiculopathy, lumbar region (principal); M51.36 Other intervertebral disc degeneration, lumbar region; M48.00 Spinal stenosis, site unspecified
CPT/HCPCS: 99214

== ENCOUNTER → 2023-03-24 10:41 | Outpatient (BNVA) | payer OTHER, SELFPAY | PROVIDERS: PCP Internal Medicine Geriatric Medicine; Visit Provider Anesthesiology | DX: M47.816 Spondylosis without myelopathy or radiculopathy, lumbar region (principal); M51.36 Other intervertebral disc degeneration, lumbar region; M48.00 Spinal stenosis, site unspecified | CPT/HCPCS: 99212 ==

== ENCOUNTER 2023-03-26 08:22 | Outpatient (REF) | payer OTHER, SELFPAY ==
[2023-03-26 12:06] LABS: Anion Gap 19 (12-20); Blood Urea Nitrogen 18 mg/dL (9-16); Calcium 10.4 mg/dL (8.4-10.2); Carbon Dioxide 22 mmol/L (22-29); Chloride 107 mmol/L (96-108); Estimated Glomerular Filt Rate > 60; Glucose Random 75 mg/dL (60-115); Potassium 4.6 mmol/L (3.3-5.1); Sodium 143 mmol/L (135-145)
== END 2023-03-26 08:23 | disposition home or self-care (01) ==
LOC: HO.HHCL 08:22
PROVIDERS: Visit Provider Internal Medicine Geriatric Medicine
DX: I10 Essential (primary) hypertension (principal); N17.9 Acute kidney failure, unspecified
CPT/HCPCS: 36415; 80048

== ENCOUNTER 2023-04-15 06:09 | Outpatient (REF) | payer OTHER, SELFPAY | END 2023-04-15 06:10 | disposition home or self-care (01) | LOC: CF 06:09 | PROVIDERS: Visit Provider Anesthesiology | DX: Z13.89 Encounter for screening for other disorder (principal) ==

== ENCOUNTER 2023-05-06 06:13 | Outpatient (REF) | payer OTHER, SELFPAY ==
--- NOTE | ~2023-05-06 | FL_ITS ---
EXAMINATION: XR FLUOROSCOPY WITH IMAGES CLINICAL INFORMATION: Spinal stenosis, site unspecified. Bilateral lumbar injections. COMPARISON: None available. TECHNIQUE: Fluoroscopy Supervised By: Dr. Ashish Ibrahim. Fluoroscopy Time: 38.8 seconds. Cumulative Dose: 28.75 mGy. DAP: Not available on this machine. Images: 8. FINDINGS: Images demonstrate needle placement and contrast injection adjacent to the bilateral lateral L4 vertebrae FL/FL guidance in treatment room IMPRESSION: Fluoroscopy guidance for pain management procedure
== END 2023-05-06 06:14 | disposition home or self-care (01) ==
LOC: CF 06:13
PROVIDERS: Visit Provider Anesthesiology
DX: M48.00 Spinal stenosis, site unspecified (principal); M47.816 Spondylosis without myelopathy or radiculopathy, lumbar region; M51.36 Other intervertebral disc degeneration, lumbar region; G89.4 Chronic pain syndrome
CPT/HCPCS: 64493; 64494; J3301; Q9967

== ENCOUNTER 2023-05-06 10:02 | Outpatient (AMB) | payer OTHER, SELFPAY ==
--- NOTE | 2023-05-06 11:02 | A.OFFVIS_ITS ---
Intake Vital Signs 05/06/23 11:17 05/06/23 11:18 Height 5 ft 6 in 5 ft 6 in Weight 180 lb 180 lb BMI 29.0 29.0 BP 108/80 112/74 Blood Pressure Location Lt brachial Lt brachial Position Sitting Sitting Respiration 14 14 Pulse 64 74 Pulse Source Pulse Oximeter Pulse Oximeter Pulse Oximetry (%) 95 96 Oxygen Delivery Method Room Air Room Air Comment pre-op post-op Intake Visit Reasons: BILATERAL L4, L5 TFESI Allergies No Known Allergies [No Known Allergies*] Allergy (Verified 05/06/23 11:20) [facility] Medical History Nicotine dependence, cigarettes, uncomplicated History of colon polyps Spinal stenosis Hx of chest pain Elevated cholesterol HTN (hypertension) Chronic pain syndrome Disc degeneration, lumbar Spondylosis of lumbar spine Surgical History History of selective injection of anesthetic agent around lumbar nerve root History of colonoscopy History of total left knee replacement (TKR) Social History Household Members: Significant Other Housing: House Do you presently have visiting nurse or other home services: Yes (stated every 6 month for checkup) Alcohol intake: former Year quit: 2019 Patient Tobacco Use Status: Current everyday Tobacco user Tobacco use type: Cigarette Cigarettes Per Day: 8 Years Smoked: (onset 8, 1/2-3/4ppd x 59yrs, 35pyh) Second Hand Smoke Exposure: No service: No Physical Exam Vital Signs: Last Vital Signs Pulse 74 05/06/23 11:18 Resp 14 05/06/23 11:18 BP 112/74 05/06/23 11:18 Pulse Ox 96 05/06/23 11:18 Oxygen Delivery Method Room Air 05/06/23 11:18 BMI result Body Mass Index 29.0 Assessment & Plan Assessment & Plan (1) Spondylosis of lumbar spine: Code(s): M47.816 - Spondylosis without myelopathy or radiculopathy, lumbar region (2) Disc degeneration, lumbar: Code(s): M51.36 - Other intervertebral disc degeneration, lumbar region (3) Chronic pain syndrome: Code(s): G89.4 - Chronic pain syndrome (4) Spinal stenosis: Code(s): M48.00 - Spinal stenosis, site unspecified Plan: Bilateral Transforaminal L4- L5 epidural steroid injection. Mr. Landin is very pleasant 65 years old gentleman who presents today for bilateral transforaminal L4-5 epidural steroid injections. Sq picture of L4 vertebra was delineated on the screen. Tilting machine ipsilateral to the left and to the right the L picture of the L4 pedicles bilaterally sequentially was obtained on the screen. Small amount of lidocaine 1% was injected into the projection of the lowest point of pedicle bilaterally. After that 22 gauge 5 in needle was driven to were the foramina bilaterally on anterior posterior oblique and lateral views. When the tips of the needles were projected across the foraminal outlets small amount of the contrast was injected delineating bilateral anterior epidural space on the right and on the left. After that injection of the 0.5% of lidocaine mixed with 40 mg of Kenalog was performed into each site needle position. 4 cc of the solution mixture was injected into each site. The patient tolerated procedure well. The needles were removed. The patient did not report any paresthesia or pain during any moments of the procedure. Sterile Band-Aids were applied on the puncture sites. The patient was taking outside of the operating room to recovery room where he recovered uneventfully. He went home without immediate complications. Plan Coding Level of Care Code Procedure Only Diagnoses Spondylosis of lumbar spine M47.816 Disc degeneration, lumbar M51.36 Chronic pain syndrome G89.4 Spinal stenosis M48.00
[2023-05-06 11:17] VITALS: BP 108/80; PULSE 64; RESP 14; O2SAT 95; BMI 29.0
[2023-05-06 11:18] VITALS: BP 112/74; PULSE 74; RESP 14; O2SAT 96; BMI 29.0
== END 2023-05-06 11:15 | disposition home or self-care (01) ==
LOC: HO.PMCPRC 10:02
PROVIDERS: PCP Internal Medicine Geriatric Medicine; Visit Provider Anesthesiology
DX: M47.816 Spondylosis without myelopathy or radiculopathy, lumbar region (principal); M51.36 Other intervertebral disc degeneration, lumbar region; G89.4 Chronic pain syndrome; M48.00 Spinal stenosis, site unspecified
CPT/HCPCS: 64493; 64494

== ENCOUNTER 2023-09-21 09:12 | Emergency (ER) | payer OTHER, SELFPAY ==
[2023-09-21 09:45] VITALS: BP 162/81; PULSE 66; RESP 16; TEMP 36.6; O2SAT 97; BMI 30.6
--- NOTE | 2023-09-21 12:28 | ED_ITS ---
HPI - Extremity Problem General Chief complaint: Extremity Problem Stated complaint: Bilateral hand pain Time Seen by Provider: 09/21/23 12:08 Source: patient, RN notes reviewed, old records reviewed and contact lens flashing puncher (Cypriot) Mode of arrival: ambulatory Limitations: language barrier (Cypriot) History of Present Illness ED Provider: ROBBIN BRUNO PA-C HPI Narrative: 68-year-old Cypriot-speaking male with past medical history significant for hypertension, nicotine dependence, OA presents to the emergency department today for evaluation of itchy rash to bilateral hands x1 days. Patient admits to pulling weeds yesterday with his bare hands. He began to notice a rash to bilateral hands which has been extending up his forearms. Admits the rash is itchy. He has not been taking anything for this at home. Denies new medications. Denies known tick or insect bites. Denies new detergents, soaps, lotions. Denies known sick contacts. Denies recent upper respiratory symptoms. Denies other concerns. Related Data Home Medications ?Medication ?Instructions ?Recorded ?Confirmed aspirin 81 mg tablet,delayed 81 mg PO DAILY 02/28/20 01/09/23 release atorvastatin 20 mg tablet 20 mg PO DAILY 02/28/20 01/09/23 gabapentin 600 mg tablet 600 mg PO BID 02/28/20 01/09/23 diclofenac sodium 1 % topical gel 2 g topical BID 08/08/20 01/09/23 baclofen 10 mg tablet 10 mg PO BID 01/09/23 01/09/23 cyclobenzaprine 10 mg tablet 10 mg PO Q8H 03/24/23 hydrocortisone 0.5 % topical cream appl topical BID 03/24/23 lisinopril 20 mg tablet 20 mg PO QAM 03/24/23 nicotine 21 mg/24 hr daily 1 patch topical QAM 03/24/23 transdermal patch Previous Rx's ?Medication ?Instructions ?Recorded prednisone 10 mg tablets in a dose See Taper PO DIRECTED #30 ea 09/21/23 pack Allergies Allergy/AdvReac Type Severity Reaction Status Date / Time No Known Allergies Allergy Verified 09/21/23 09:46 [No Known Allergies*] Review of Systems Review of Systems: Constitutional: No fever, chills, fatigue, night sweats, weight changes ENT/Mouth: No ear pain, hearing loss, nasal congestion, sinus pain, rhinorrhea, sore throat Eyes: No eye pain, swelling, redness, vision changes, discharge Cardio: No chest pain, palpitations, BENEDICT, orthopnea, peripheral edema Pulm: No SOB, cough, sputum, wheezing, dyspnea, hemoptysis GI: No nausea, vomiting, hematemesis, abdominal pain, diarrhea, constipation, hematochezia, melena : No irregular bleeding, dysuria, frequency, urgency, hesitancy, hematuria, flank pain, urinary flow changes, urinary incontinence or retention MSK: No back pain, neck pain, joint pain, myalgias Skin: No lesions, +rash to b/l hands Neuro: No weakness, numbness, paresthesias, LOC, dizziness, headache Psych: No anxiety/panic, depression, SI/HI, AH/VH All other systems reviewed and are negative. [facility] Past Medical History Attestation statement: The following information was validated with the patient. Source: old records reviewed and nursing notes reviewed Medical History Nicotine dependence, cigarettes, uncomplicated History of colon polyps Spinal stenosis Hx of chest pain Elevated cholesterol HTN (hypertension) Chronic pain syndrome Disc degeneration, lumbar Spondylosis of lumbar spine Surgical History History of selective injection of anesthetic agent around lumbar nerve root History of colonoscopy History of total left knee replacement (TKR) Social History Social History Household Members: Significant Other Housing: House Do you presently have visiting nurse or other home services: Yes (stated every 6 month for checkup) Alcohol intake: former Year quit: 2019 Patient Tobacco Use Status: Current everyday Tobacco user Tobacco use type: Cigarette Cigarettes Per Day: 8 Years Smoked: (onset 8, 1/2-3/4ppd x 59yrs, 35pyh) Second Hand Smoke Exposure: No Advance Directives: No Advance Directives Information Provided: Yes service: No Physical Exam Vital Signs: Vital Signs: Last Vital Signs Temp 97.3 F 09/21/23 12:59 Pulse 56 09/21/23 12:59 Resp 18 09/21/23 12:59 BP 134/83 09/21/23 12:59 Pulse Ox 97 09/21/23 12:59 O2 Del Method Room Air 09/21/23 12:59 BMI result Body Mass Index 30.6 Vital signs stable, afebrile Const: General: cooperative, healthy appearing, comfortable and no acute distress Orientation/consciousness: patient oriented x3 HEENT: Head: Yes normal to inspection, Yes No palpable skull fracture present, Yes normocephalic and Yes atraumatic Ears: hearing grossly normal bilaterally Eyes: Other: No dendritic lesions General: appearance normal, both eyes and all related structures Conjunctivae: conjunctivae normal Sclerae: sclerae normal Pupils: Equal, round and reactive pupils present Neck: Neck: Yes normal visual inspection, Yes full ROM and Yes no lymphadenopathy Chest: Chest palpation & inspection: normal inspection of the chest Resp: Effort & Inspection: normal respiratory effort, able to speak in complete sentences and no stridor Auscultation: clear to auscultation bilaterally Cardio: Rate: regular rate Rhythm: regular rhythm GI: Inspection: Yes normal to inspection Skin: Other: + refer to below Neuro: General: patient oriented x3, gait normal, tone normal and no focal motor deficits Cranial nerves: Yes Equal, round and reactive pupils present Extrem: Other: + erythematous pustular rash noted to bi lateral hands extending into forearms. Excoriations noted. No sloughing. Spares soles and web spaces. Spares mucous membranes. Non dermatomal pattern. No target lesions. Course Course Course Narrative: 1230-- patient's HPI and physical exam is consistent with contact dermatitis from a plant. I do not feel as though lab work is warranted at this time. Patient is agreeable with this. Prednisone taper sent to pharmacy for treatment. Also advised to take Benadryl for itching. Informed patient that th is is contagious and to limit contact with others. he verbalizes understanding. Patient has remained stable throughout ED visit today. Discussed worrisome signs and symptoms and when to return to the ED. All questions answered at this time. Patient is agreeable with disposition and stable for discharge. Medical Decision Making Medical Decision Making MDM Narrative: 68-year-old Cypriot-speaking male with past medical history significant for hypertension, nicotine dependence, OA presents to the emergency department today for evaluation of itchy rash to bilateral hands x1 days.Patient hypertensive to 162/81, vitals otherwise WNL. Afebrile. On exam there is an erythematous pustular rash noted to bilateral hands extending into forearms. Excoriations noted. No sloughing. Spares soles and web spaces. Spares mucous membranes. Non dermatomal pattern. No target lesions. Airway patent. No stridor. No facial or tongue edema. Lungs are CTA bilaterally. Differential diagnosis includes contact dermatitis, plan dermatitis, allergic reaction. Unlikely anaphylaxis, SJS/TEN, hand/foot/mouth, herpes zoster, herpes simplex, Lyme or tick-borne pathology, medication SE. Plan for disposition. Differential Diagnosis Differential Diagnoses: The differential diagnosis associated with the presentation includes As above Admission/Observation Not indicated External Record Review External record reviewed: Inpatient record, Office record, Outpatient record, Prior outpatient labs, Prior outpatient radiology, Primary care record and Outside ED record Tests considered The following testing was considered but not selected: I considered obtaining basic labs, tick, Lyme panel however exam and HPI consistent with contact dermatitis from plant, these investigations are not warranted at this time. Prescription Management I considered prescription management with: Other (Prednisone) Social Determinants Patient?s care significantly limited by Social Determinants of Health including: Other Social Determinant of Health Critical Care Time Critical Care Time Critical Care Time: No Discharge Plan Discharge Clinical Impression: Allergic contact dermatitis due to plant Patient Disposition: Home, Self-Care Instructions: Contact Dermatitis (ED), Poison Vanessa (ED) Additional Instructions: Your physical exam is consistent with skin irritation/ dermatitis from a plant. Treatment for this is with a taper of steroids. Prednisone has been sent to your pharmacy for you to take over the next 12 days. Follow this taper: 40 mg daily for 3 days 30 mg daily for 3 days 20 mg daily for 3 days 10 mg daily for 3 days You may also take Benadryl as needed for itching. Follow up with primary care provider as needed. Prescriptions: New prednisone 10 mg tablets,dose pack See Taper PO DIRECTED Qty: 30 0RF Taper: Prednisone 40 mg daily for 3 Days and 0 Hour 30 mg daily for 3 Days and 0 Hour 20 mg daily for 3 Days and 0 Hour 10 mg daily for 3 Days and 0 Hour Rx Instructions: Take 40 mg (4 tabs) a day for 3 days, then 30 mg (3 tabs) for 3 days, then 20 mg (2 tabs) for 3 days, and then 10 mg (1 tab) for 3 days. No Action diclofenac sodium 1 % gel 2 g topical BID baclofen 10 mg Tablet 10 mg PO BID gabapentin 600 mg tablet 600 mg PO BID atorvastatin 20 mg tablet 20 mg PO DAILY aspirin 81 mg tablet,delayed release (DR/EC) 81 mg PO DAILY lisinopril 20 mg tablet 20 mg PO QAM hydrocortisone 0.5 % cream topical BID cyclobenzaprine 10 mg tablet 10 mg PO Q8H nicotine 21 mg/24 hr patch 24 hour 1 patch topical QAM Referrals: Name,MD Andriy [Primary Care Provider] - Interventions: ED Discharge Assessment Last Done: 09/21/23 12:59 Discharge Date/Time: 09/21/23 13:00 Print Language: Cypriot
[2023-09-21 12:35] VITALS: BP 134/83; PULSE 56; RESP 18; TEMP 36.3; O2SAT 97
[2023-09-21 12:59] VITALS: BP 134/83; PULSE 56; RESP 18; TEMP 36.3; O2SAT 97
== END 2023-09-21 13:00 | disposition home or self-care (01) ==
PROVIDERS: Emergency Provider Emergency Medicine; PCP Internal Medicine Geriatric Medicine
DX: L23.7 Allergic contact dermatitis due to plants, except food (principal); R21 Rash and other nonspecific skin eruption
CPT/HCPCS: 99282; 99283

== ENCOUNTER 2023-12-19 08:18 | Outpatient (REF) | payer OTHER, SELFPAY ==
[2023-12-19 11:51] LABS: Alanine Aminotransferase 17 U/L (0-40); Albumin Level 4.3 g/dL (3.5-5.0); Alkaline Phosphatase 71 U/L (39-117); Anion Gap 11 (12-20); Aspartate Amino Transferase 20 U/L (5-37); Bilirubin Total 1.1 mg/dL (0.0-1.0); Blood Urea Nitrogen 18 mg/dL (9-16); Carbon Dioxide 23 mmol/L (22-29); Chloride 108 mmol/L (96-108); Cholesterol 125 mg/dL (<200); Estimated Glomerular Filt Rate > 60; Glucose Random 82 mg/dL (60-115); HDL Cholesterol 44 mg/dL (>40); LDL Cholesterol Calculated 71 mg/dL (<100); Sodium 138 mmol/L (135-145); Total Protein 7.2 g/dL (6.5-8.0); Triglycerides 53 mg/dL (<150)
== END 2023-12-19 08:19 | disposition home or self-care (01) ==
LOC: HO.HHCL 08:18
PROVIDERS: Visit Provider Internal Medicine Geriatric Medicine
DX: I10 Essential (primary) hypertension (principal); Z79.899 Other long term (current) drug therapy; L30.1 Dyshidrosis [pompholyx]
CPT/HCPCS: 36415; 80053; 80061

== ENCOUNTER 2023-12-25 10:33 | Outpatient (REF) | payer OTHER, SELFPAY ==
--- NOTE | ~2023-12-25 | CT_ITS ---
EXAMINATION: CT LOW-DOSE SCREENING CHEST WITHOUT CONTRAST CLINICAL INFORMATION: Nicotine dependence, cigarettes, uncomplicated. The patient is a current smoker with a 60 pack-year history of smoking. COMPARISON: CT chest December 20, 2022 and June 25, 2012 (CTA). TECHNIQUE: Multidetector volumetric CT imaging of the chest is performed on a Siemens SOMATOM Definition scanner without contrast using low dose technique. Additional 2D coronal and sagittal reformatted images and axial 3D maximum intensity projection (MIP) images are generated on the CT workstation. This CT examination was performed using dose optimization techniques as appropriate, variously including the following: *Automated exposure control *Adjustment of mA and/or kV according to patient size (this includes techniques or standardized protocols for targeted exams where dose is matched to indication/reason for exam; i.e. extremities or head) *Use of iterative reconstruction technique TOTAL EXAM DLP: 53 mGy-cm. CTDIvol: 1.75 mGy. FINDINGS: PULMONARY NODULES:Punctate calcification again seen in the lingula (5:243 compare prior 6:210). No suspicious pulmonary nodules. LUNGS: Lungs bilaterally symmetrically expanded. No focal lung nodule or mass. No effusion or pneumothorax. Central airways patent. MEDIASTINUM: No mediastinal, hilar or axillary adenopathy or free fluid collection. CORONARY ARTERY CALCIFICATION: Minimal THYROID GLAND: Unremarkable to the extent seen. CARDIOVASCULAR STRUCTURES: Aortic and heart size normal. No pericardial effusion. CHEST WALL/AXILLA: Unremarkable. UPPER ABDOMEN: Included portions of the solid organs in the upper abdomen unremarkable on noncontrast imaging. OSSEOUS STRUCTURES: No suspicious focal findings. CT/CT lung screening IMPRESSION: No evidence of malignancy ASSESSMENT: 1. Lung-RADS Category 1: Negative. There are no nodules or there are definitely benign nodules. N/A 2. Lung-RADS Category S: Negative. There are no clinically significant or potentially clinically significant findings not related to the lungs requiring urgent additional evaluation. RECOMMENDATION: Continued routine annual low-dose CT lung screening in 1 year is recommended. An order for CT CHEST LOW DOSE CANCER SCREENING ([id number]) can be placed. Electronically signed by: Riley Boudreaux MD 02/08/2024 01:02 AM EDT
== END 2023-12-25 10:34 | disposition home or self-care (01) ==
LOC: HO.CT 10:33
PROVIDERS: PCP Internal Medicine Geriatric Medicine; Visit Provider Physician Assistant Medical
DX: Z12.2 Encounter for screening for malignant neoplasm of respiratory organs (principal); F17.210 Nicotine dependence, cigarettes, uncomplicated
CPT/HCPCS: 71271

== ENCOUNTER 2025-01-18 08:05 | Outpatient (REF) | payer OTHER, SELFPAY ==
--- OUTSIDE RECORDS SUMMARY | 2025-01-18 08:17 | XMS_ITS | Encounter Summary ---
Author Organization [employer] Address [address] [facility] 7t [place] [address] Care Team Providers Care Director Of Graduate Medical Education Name Role Phone Name, Andriy RANGEL Primary Care Provider [phone] Reason for Visit * Reason Comments Med Refill Encounter Details Date Type Department Care Team ([facility] st Contact Info) Description 09/07/2023 Refill [facility] [address] [place], [place] [phone] Name, MD Andriy [address] [place], [place] [phone] Hypertension, unspecified type Social History Tobacco Use Types Packs/Day Years Used Date Smoking Tobacco: Every Day Cigarettes Smokeless Tobacco: Never Alcohol Use Standard Drinks/Week Comments Not Currently 0 (1 standard drink = 0.6 oz pur e alcohol) Depression Answer Date Recorded Patient Health Questionnaire-9 Score 0 08/19/2023 Patient Health Questionnaire-9 Score 0 08/19/2023 Last PHQ-9: Questionnaire Data Not on file 0 08/19/2023 Housing Stability Answer Date Recorded What is your housing situation today? I have denny banda 02/27/[address] you li ve. Do you have problems with any of the following? None of the above 02/27/2023 Food Insecurity Answer Date Recorded Within the past 12 months, y ou worried that your food would run out before you got money to buy more: Never True 02/27/2023 Within the past 12 months,th e food you bought just didn't last and you didn't have enough money to get more: Never True 12/2022 Transportation Answer Date Recorded In the past 12 months, has l ack of transportation kept you from medical appts, meetings, work or from getting things needed for daily living? No 02/27/2023 Utilities Answer Date Recorded In the past 12 months, has t he electric, gas, oil or water company threatened to shut off services in your home? No 02/27/2023 Depression Answer Date Recorded Patient Health Questionnaire-2 Score 0 08/19/2023 Sex and Gender Information Value Date Recorded Sex Assigned at Male 02/18/2022 10:16 AM EDT Legal Sex Male 10:16 AM EDT Gender Identity Male 02/18/2022 10:16 AM EDT Sexual Orientation Straight 02/18/2022 10 :16 AM EDT documented as of this encounter Plan of Treatment Upcoming Encounters Date Type Department Care Team (Late st Contact Info) Description 04/07/2025 9:45 AM EST Office Visit [facility] [address] [place] [phone] NameAndriy MD [address] [place] [phone] documented as of this encounter Visit Diagnoses Diagnosis Hypertension, unspecified type documented in this encounter Additional Health Concerns Assessment Noted Time PHQ-9 Depression Total Score: 0 08/19/19 24 1:30 PM EDT documented as of this encounter Care Teams Director Of Graduate Medical Education Relationship Specialty Start Date End Date Name, MD Andriy [address] [place] [phone] PCP - General Family Medicine 09/28/15 documented as of this encounter
--- OUTSIDE RECORDS SUMMARY | 2025-01-18 08:17 | XMS_ITS | Encounter Summary ---
Author Organization [employer] Address [address] [facility] 7t [place] [address] Care Team Providers Care Director Of Category Management Name Role Phone Name, Andriy RANGEL Primary Care Provider [phone] Reason for Visit * Reason Onset Date Comments Reschedule 06/26/2023 Encounter Details Date Type Department Care Team ([facility] Contact Info) Description 06/26/2023 Telephone [facility] [address] [place], [place] [phone] Name, MD Andriy [address] [place] [address] Reschedule Social History Tobacco Use Types Packs/Day Years Used Date Smoking Tobacco: Every Day Cigarettes Smokeless Tobacco: Never Alcohol Use Standard Drinks/Week Comments Not Currently 0 (1 standard drink = 0.6 oz pur e alcohol) Housing Stability Answer Date Recorded What is your housing situation today? I have dennychon banda 02/27/[address] you [...] Date Recorded Patient Health Questionnaire-2 Score 0 05/29/2022 Sex and Gender Information Value Date Recorded Sex Assigned at Male 02/18/2022 10:16 AM EDT Legal Sex Male 10:16 AM EDT Gender Identity Male 02/18/2022 10:16 AM EDT Sexual Orientation Straight 02/18/2022 10 :16 AM EDT documented as of this encounter Miscellaneous Notes * Telephone Encounter - Elizabeth Yoo - 06/26/2023 11:28 AM EST Tc from pt requesting r/s f/u appt. Quality And Reliability Engineer attempted to schedule, no availability. documented in this encounter Plan of Treatment Upcoming Encounters Date Type Department Care Team (Late st Contact Info) Description 04/07/2025 9:45 AM EST Office Visit [facility] [address] [place] [phone] Name, MD Andriy [address] [place] [phone] documented as of this encounter Visit Diagnoses Not on filedocumented in this encounter Care Teams Director Of Category Management Relationship Specialty Start Date End Date Andriy Gomez MD [address] [place] [phone] PCP - General Family Medicine 09/28/15 documented as of this encounter
--- OUTSIDE RECORDS SUMMARY | 2025-01-18 08:17 | XMS_ITS | Encounter Summary ---
Author Organization [employer] Address [address] [facility] 7t [place] [address] Care Team Providers Care Plasma Center Technician Name Role Phone Name, Andriy RANGEL Primary Care Provider [phone] Reason for Visit * Reason Comments Med Refill Encounter Details Date Type Department Care Team ([facility] st Contact Info) Description 05/29/2023 Refill [facility] [address] [place], [place] [phone] Name, MD Andriy [address] [place] [address] Chronic pain syndrome Social History Tobacco Use Types Packs/Day Years [...] Description 04/07/2025 9:45 AM EST Office Visit [facility] [address] [place] [phone] Name, MD Andriy [address] [place] [phone] documented as of this encounter Visit Diagnoses Diagnosis Chronic pain syndrome documented in this encounter Care Teams Plasma Center Technician Relationship Specialty Start Date End Date Name, MD Andriy [address] [place] [phone] PCP - General Family Medicine 09/28/15 documented as of this encounter
--- OUTSIDE RECORDS SUMMARY | 2025-01-18 08:17 | XMS_ITS | Encounter Summary ---
Author Organization [employer] Address [address] [facility] [address] [place] [address] Care Team Providers Care Consumer Relations Complaint Clerk Name Role Phone Name, Andriy RANGEL Primary Care Provider [phone] Reason for Visit * Reason Comments Med Refill Encounter Details Date Type Department Care Team ([facility] st Contact Info) Description 12/06/2023 Refill [facility] [address] [place], [place] [phone] Fahad Chambers MD [address] [place], [place] [phone] Social History Tobacco Use Types Packs/Day Years Used Date Smoking Tobacco: Every Day Cigarettes Smokeless Tobacco: Never Alcohol Use Standard Drinks/Week Comments Not Currently 0 (1 standard drink = 0.6 oz pur e alcohol) Alcohol Answer Date Recorded Frequency of Alcohol Consumption Not on file 12/09/2023 Average Number of Drinks Not on file 024 Frequency of Binge Drinking Not on file 11/20 Score 0 12/09/2023 Depression Answer Date Recorded Patient Health Questionnaire-9 Score 0 08/19/2023 Patient Health Questionnaire-9 Score 0 08/19/2023 Last PHQ-9: Questionnaire Data Not on file 0 08/19/2023 Housing Stability Answer Date Recorded What is your housing situation today? I have denny banda 12/09/[address] you li ve. Do you have problems with any of the following? None of the above 12/09/2023 Food Insecurity Answer Date Recorded Within the past 12 months, y ou worried that your food would run out before you got money to buy more: Never True 12/09/2023 Within the past 12 months,th e food you bought just didn't last and you didn't have enough money to get more: Never True Transportation Answer Date Recorded In the past 12 months, has l ack of transportation kept you from medical appts, meetings, work or from getting things needed for daily living? No 12/09/2023 Utilities Answer Date Recorded In the past 12 months, has t he electric, gas, oil or water company threatened to shut off services in your home? No 12/09/2023 Depression Answer Date Recorded Patient Health Questionnaire-2 [...] Description 04/07/2025 9:45 AM EST Office Visit [facility] [address] [place] [phone] Name, MD Andriy [address] [place] [address] documented as of this encounter Visit Diagnoses Not on filedocumented in this encounter Additional Health Concerns Assessment Noted Time PHQ-9 Depression Total Score: 0 08/19/19 24 1:30 PM EDT documented as of this encounter Care Teams Consumer Relations Complaint Clerk Relationship Specialty Start Date End Date NameAndriy MD [address] [place] [id number] PCP - General Family Medicine 09/28/15 documented as of this encounter
--- OUTSIDE RECORDS SUMMARY | 2025-01-18 08:18 | XMS_ITS | Encounter Summary ---
Author Organization [employer] Address [address] [facility] [address] 7[address] [place] [address] Care Team Providers Care Manager Corporate Marketing Name Role Phone Name, Andriy RANGEL Primary Care Provider [phone] Encounter Details Date Type Department Care Team ([facility] st Contact Info) Description 09/02/2024 Telephone [facility] [address] [place], [place] [phone] Name, MD Andriy [address] [place] [address] Social History Tobacco Use Types Packs/Day Years Used Date Smoking Tobacco: Every Day Cigarettes Passive Smoke Exposure: Current Smokeless Tobacco: Never Alcohol Use Standard Drinks/Week [...] Recorded Patient Health Questionnaire-2 Score 0 08/19/2023 Internet Access Answer Date Recorded Internet Access Q1 No 12/19/2023 Internet Access Q2 I do not want or need it 11/21 Sex and Gender Information Value Date Recorded Sex Assigned at Male 02/18/2022 10:16 AM EDT Legal Sex Male 10:16 AM EDT Gender Identity Male 02/18/2022 10:16 AM EDT Sexual Orientation Straight 02/18/2022 10 :16 AM EDT documented as of this encounter Miscellaneous Notes * Telephone Encounter - Krishan Drew - 09/02/2024 2:46 PM EDT Tc from pt requesting to reschedule appointment from June , as he's back from from vacations. Please return call [phone] documented in this encounter Plan of Treatment Upcoming Encounters Date Type Department Care Team (Late st Contact Info) Description 04/07/2025 9:45 AM EST Office Visit [facility] [address] [place] [phone] Name, MD Andriy [address] [place] [address] documented as of this encounter Visit Diagnoses Not on filedocumented in this encounter Additional Health Concerns Assessment Noted Time PHQ-9 Depression Total Score: 0 08/19/19 24 1:30 PM EDT documented as of this encounter Care Teams Manager Corporate Marketing Relationship Specialty Start Date End Date Name, MD Andriy [address] [place] [phone] PCP - General Family Medicine 09/28/15 documented as of this encounter
--- OUTSIDE RECORDS SUMMARY | 2025-01-18 08:18 | XMS_ITS | Encounter Summary ---
Author Organization [employer] Address [address] 7t [place] [address] Care Team Providers Care Rib Cloth Knitter Name Role Phone Name, Andriy RANGEL Primary Care Provider [phone] Encounter Details Date Type Department Care Team (Latest Contact Info) Description 07/01/2019 Abstract [facility] CONVERSIONS Dental, Provider, DDS Social History Tobacco Use Types Packs/Day Years Used Date Smoking Tobacco: Never Assessed Sex and Gender Information Value Date Recorded Sex Assigned at Male 02/18/2022 10:16 AM EDT Legal Sex Male 10:16 AM EDT Gender Identity Male 02/18/2022 10:16 AM EDT Sexual Orientation Straight 02/18/2022 10 :16 AM EDT documented as of this encounter Plan of Treatment Upcoming Encounters Date Type Department Care Team (Late st Contact Info) Description 04/07/2025 9:45 AM EST Office Visit [facility] MEDICINE [address] [place] [address] NameAndriy MD [address] [place] [address] documented as of this encounter Visit Diagnoses Not on filedocumented in this encounter Care Teams Rib Cloth Knitter Relationship Specialty Start Date End Date Name, MD Andriy [address] [place] [id number] PCP - General Family Medicine 09/28/15 documented as of this encounter
--- OUTSIDE RECORDS SUMMARY | 2025-01-18 08:18 | XMS_ITS | Encounter Summary ---
Author Organization [employer] Address [address] [facility] 7t [place] [address] Care Team Providers Care Particle Board Supervisor Name Role Phone Name, Andriy RANGEL Primary Care Provider [phone] Encounter Details Date Type Department Care Team (Latest Contact Info) Description 06/30/2018 Abstract [facility] CONVERSIONS Dental, Provider, DDS Social History Tobacco [...] Description 04/07/2025 9:45 AM EST Office Visit [facility] MEDICINE [address] [place] [address] NameAndriy MD [address] [place] [address] documented as of this encounter Visit Diagnoses Not on filedocumented in this encounter Care Teams Particle Board Supervisor Relationship Specialty Start Date End Date Name, MD Andriy [address] [place] [phone] PCP - General Family Medicine 09/28/15 documented as of this encounter
--- OUTSIDE RECORDS SUMMARY | 2025-01-18 08:18 | XMS_ITS | Encounter Summary ---
Author Organization [employer] [facility] Address [address] [facility] 7t [place] [address] Care Team Providers Care Greenskeeper Supervisor Name Role Phone Name, Andriy RANGEL Primary Care Provider [phone] Encounter Details Date Type Department Care Team (Late st Contact Info) Description 04/04/2022 Orders Only [facility] [address] [place] [id number] Sugar Aguilera LPN Social History Tobacco Use Types Packs/Day Years [...] Description 04/07/2025 9:45 AM EST Office Visit [facility] MEDICINE [address] [place] [phone] NameAndriy MD [address] [place] [address] documented as of this encounter Visit Diagnoses Not on filedocumented in this encounter Care Teams Greenskeeper Supervisor Relationship Specialty Start Date End Date NameAndriy MD [address] [place] [phone] PCP - General Family Medicine 09/28/15 documented as of this encounter
--- OUTSIDE RECORDS SUMMARY | 2025-01-18 08:18 | XMS_ITS | Encounter Summary ---
Author Organization [employer] Address [address] [facility] 7t [place] [address] Care Team Providers Care Mother Helper Name Role Phone Name, Andriy RANGEL Primary Care Provider Reason for Visit * Reason Comments Med Refill Encounter Details Date Type Department Care Team ([facility] st Contact Info) Description 05/03/2024 Refill [facility] MEDICINE [address] [place], [place] [phone] Name, MD Andriy [address] [place] [address] Social History Tobacco Use Types Packs/Day Years [...] Description 04/07/2025 9:45 AM EST Office Visit [facility] MEDICINE [address] [place] [address] NameAndriy MD [address] [place] [address] documented as of this encounter Visit Diagnoses Not on filedocumented in this encounter Additional Health Concerns Assessment Noted Time PHQ-9 Depression Total Score: 0 08/19/19 24 1:30 PM EDT documented as of this encounter Care Teams Mother Helper Relationship Specialty Start Date End Date NameAndriy MD [address] [place] [phone] PCP - General Family Medicine 09/28/15 documented as of this encounter
--- OUTSIDE RECORDS SUMMARY | 2025-01-18 08:18 | XMS_ITS | Encounter Summary ---
Author Organization [employer] Address [address] [facility] 7t [place] [address] Care Team Providers Care Systems Accountant Name Role Phone Name, Andriy RANGEL Primary Care Provider [phone] Reason for Visit * Reason Comments Med Refill Encounter Details Date Type Department Care Team ([facility] st Contact Info) Description 05/28/2024 Refill [facility] MEDICINE [address] [place], [place] [phone] Name, MD Andriy [address] [place] [address] Hand dermatitis Social History Tobacco Use Types Packs/Day Years [...] Description 04/07/2025 9:45 AM EST Office Visit [facility] MEDICINE [address] [place] [phone] Name, MD Andriy [address] [place] [address] documented as of this encounter Visit Diagnoses Diagnosis Hand dermatitis Contact dermatitis and other eczema, due to unspecified cause documented in this encounter Additional Health Concerns Assessment Noted Time PHQ-9 Depression Total Score: 0 08/19/19 24 1:30 PM EDT documented as of this encounter Care Teams Systems Accountant Relationship Specialty Start Date End Date NameAndriy MD [address] [place] [phone] PCP - General Family Medicine 09/28/15 documented as of this encounter
--- OUTSIDE RECORDS SUMMARY | 2025-01-18 08:18 | XMS_ITS | Encounter Summary ---
Author Organization [employer] Address [address] [facility] 7t [place] [address] Care Team Providers Care Supervisor Steno Pool Name Role Phone Name, Andriy RANGEL Primary Care Provider [phone] Encounter Details Date Type Department Care Team (Latest Contact Info) Description 01/15/2021 Abstract [facility] CONVERSIONS Dental, Provider, DDS Social History Tobacco [...] Description 04/07/2025 9:45 AM EST Office Visit [facility] MEDICINE [address] [place] [address] NameAndriy MD [address] [place] [address] documented as of this encounter Visit Diagnoses Not on filedocumented in this encounter Care Teams Supervisor Steno Pool Relationship Specialty Start Date End Date Name, MD Andriy [address] [place] [address] PCP - General Family Medicine 09/28/15 documented as of this encounter
--- OUTSIDE RECORDS SUMMARY | 2025-01-18 08:18 | XMS_ITS | Encounter Summary ---
Author Organization [facility] Address [address] [place] [address] 7t [place] [address] Care Team Providers Care Attending Radiologist Name Role Phone NameAndriy MD Primary Care Provider [phone] Reason for Visit * Reason Comments Med Refill Encounter Details Date Type Department Care Team (Late st Contact Info) Description 09/26/2022 Refill [facility] MEDICINE [address] [place] [phone] Andriy Gomez MD [address] [place] [address] [phone] Chronic pain syndrome Social History Tobacco Use Types Packs/Day Years Used Date Smoking Tobacco: Never Smokeless Tobacco: Never Alcohol Use Standard Drinks/Week Comments Not Currently 0 (1 standard drink = 0.6 oz pur e alcohol) Depression Answer Date Recorded Patient Health Questionnaire-2 [...] Description 04/07/2025 9:45 AM EST Office Visit [facility] MEDICINE [address] [place] [phone] Andriy Gomez MD [address] [place] [address] documented as of this encounter Visit Diagnoses Diagnosis Chronic pain syndrome documented in this encounter Care Teams Attending Radiologist Relationship Specialty Start Date End Date NameAndriy MD [address] [place] [address] PCP - General Family Medicine 09/28/15 documented as of this encounter
--- OUTSIDE RECORDS SUMMARY | 2025-01-18 08:19 | XMS_ITS | Encounter Summary ---
Author Organization [facility] Address [address] [place] [address] 7t [place] [address] Care Team Providers Care Icing And Glaze Maker Name Role Phone NameAndriy MD Primary Care Provider [phone] Reason for Visit * Reason Comments Med Refill Encounter Details Date Type Department Care Team (Late st Contact Info) Description 09/24/2022 Refill [facility] MEDICINE [address] [place] [phone] Andriy Gomez MD [address] [place] [address] [phone] Chronic pain syndrome Social History Tobacco Use [...] Description 04/07/2025 9:45 AM EST Office Visit [facility] MEDICINE [address] [place] [phone] Andriy Gomez MD [address] [place] [address] documented as of this encounter Visit Diagnoses Diagnosis Chronic pain syndrome documented in this encounter Care Teams Icing And Glaze Maker Relationship Specialty Start Date End Date NameAndriy MD [address] [place] [address] PCP - General Family Medicine 09/28/15 documented as of this encounter
--- OUTSIDE RECORDS SUMMARY | 2025-01-18 08:19 | XMS_ITS | Encounter Summary ---
Author Organization [employer] Address [address] [facility] 7t [place] [address] Care Team Providers Care Teller Manager Name Role Phone Name, Andriy RANGEL Primary Care Provider [phone] Encounter Details Date Type Department Care Team (Latest Contact Info) Description 12/18/2021 Abstract [facility] CONVERSIONS Dental, Provider, DDS Social History [...] AM EST Office Visit [facility] MEDICINE [address] [place] [address] NameAndriy MD [address] [place] [address] documented as of this encounter Visit Diagnoses Not on filedocumented in this encounter Care Teams Teller Manager Relationship Specialty Start Date End Date Name, MD Andriy [address] [place] [address] PCP - General Family Medicine 09/28/15 documented as of this encounter
--- OUTSIDE RECORDS SUMMARY | 2025-01-18 08:19 | XMS_ITS | Encounter Summary ---
Author Organization [employer] Address [address] [facility] 7t [place] [address] Care Team Providers Care Safe Deposit Attendant Name Role Phone Name, Andiry RANGEL Primary Care Provider [phone] Reason for Visit * Reason Onset Date Comments Hospital Follow-up 02/27/2023 Encounter Details Date Type Department Care Team ([facility] Contact Info) Description 02/27/2023 Telephone [facility] MEDICINE [address] [place], [place] [phone] Name, MD Andriy [address] [place] [address] Hospital Follow-up Social History Tobacco Use Types Packs/Day Years [...] encounter Miscellaneous Notes * Telephone Encounter - Keyla Brennan - 02/27/2023 1:48 PM EST Tc from pt requesting HDF appointment. Pt was [place] [facility] [place] and discharged on 01/11. Was diagnosed with orthostatis. Was advised will forward to care coordinators for f/u. Please contact pt at [phone] documented in this encounter Plan of Treatment Upcoming Encounters Date Type Department Care Team (Late st Contact Info) Description 04/07/2025 9:45 AM EST Office Visit [facility] MEDICINE [address] [place] [phone] Name, MD Andriy [address] [place] [address] documented as of this encounter Visit Diagnoses Not on filedocumented in this encounter Care Teams Safe Deposit Attendant Relationship Specialty Start Date End Date Name, MD Andriy [address] [place] [phone] PCP - General Family Medicine 09/28/15 documented as of this encounter
--- OUTSIDE RECORDS SUMMARY | 2025-01-18 08:19 | XMS_ITS | Encounter Summary ---
Author Organization [employer] Address [address] [facility] 7t [place] [address] Care Team Providers Care Software Sales Consultant Name Role Phone Name, Andriy RANGEL Primary Care Provider [phone] Encounter Details Date Type Department Care Team (Late st Contact Info) Description 09/30/2022 Abstract [facility] MEDICINE [address] [place] [address] [phone] Name, MD Andriy [address] [place] [address] [phone] Social History Tobacco Use Types Packs/Day Years [...] Orientation Straight 02/18/2022 10 :16 AM EDT COVID-19 Exposure Response Date Recorded In the last 10 days, have yo u been in contact with someone who was confirmed or suspected to have Coronavirus/COVID-19? No / Unsure 09/30/2022 10:43 AM EDT documented as of this encounter Plan of Treatment Upcoming Encounters Date Type Department Care Team (Late Contact Info) Description 04/07/2025 9:45 AM EST Office Visit [facility] MEDICINE [address] [place] [address] [phone] NameAndriy MD [address] [place] [address] [phone] documented as of this encounter Procedures Procedure Name Priority Date/Time Associated Diagnosis Comments COLONOSCOPY Routine 08/22/2017 12:20 PM EDT documented in this encounter Results * Colonoscopy (08/22/2017 12:20 PM EDT) Colonoscopy Normal Normal Narrative Beronica Winchester - 08/22/2017 12:20 PM EDT Recommended 10 year follow up Historical Provider HEALTH MAINTENANCE Final Result documented in this encounter Visit Diagnoses Not on filedocumented in this encounter Care Teams Software Sales Consultant Relationship Specialty Start Date End Date Name, MD Andriy [address] [place] [phone] PCP - General Family Medicine 09/28/15 documented as of this encounter
--- OUTSIDE RECORDS SUMMARY | 2025-01-18 08:19 | XMS_ITS | Clinical Summary ---
Author Organization [employer] Address [address] [facility] 7t [place] [address] Care Team Providers Care Life Sciences Manager Name Role Phone Name, Andriy RANGEL Primary Care Provider [phone] Allergies No known active allergies Medications hydrocortisone 2.5 % cream Apply topically if needed for rash. 30 g 1 10/13/19 24 Active acetaminophen (Tylenol) 500 MG tablet Take 1 tablet (500 mg) by mouth every 6 (six) hours if needed for mild pain for up to 20 doses. 20 tablet 11/04/19 24 Active Additional Information Patient not taking.Reported on 10/04/2024 Petrolatum 42 % ointment APPLY TOPICALLY TWICE DAILY IN THE MORNING AND AT BEDTIME NEEDED FOR DRY SKIN 454 g 1 02/11/20 24 Active hydrocortisone 0.5 % cream APPLY TO THE AFFECTED AREA(S) TWICE DAILY 56.8 g 2 03/05/20 24 Active clobetasol (Temovate) 0.05 % ointmentIndica tions:Hand dermatitis APPLY TOPICALLY TWICE DAILY 30 g 2 12/17/19 25 Active nicotine (Nicoderm CQ) 21 MG/24HR patch PLACE 1 PATCH ON THE SKIN EVERY DAY AT THE SAME TIME. 30 patch 12/22/19 25 Active amLODIPine (Norvasc) 10 MG tablet TAKE 1 TABLET BY MOUTH EVERY DAY 90 tablet 3 01/12/20 25 Active atorvastatin (Lipitor) 20 MG tabletIndicati ons:Hypertensi on, unspecified type TAKE 1 TABLET BY MOUTH EVERY DAY 90 tablet 3 01/12/20 25 Active aspirin (Aspirin Low Dose) 81 MG EC tabletIndicati ons:Hypertensi on, unspecified type TAKE 1 TABLET BY MOUTH EVERY DAY 90 tablet 3 01/12/20 25 Active gabapentin (Neurontin) 600 MG tabletIndicati ons:Lumbosacra l spondylosis without myelopathy Take 1 tablet (600 mg) by mouth 2 times daily. 180 tablet 3 01/12/20 Active ibuprofen 600 MG tablet Take 1 tablet (600 mg) by mouth every 6 (six) hours if needed for mild pain for up to 20 doses. 20 tablet 11/04/19 24 025 Discontinued(T herapy completed) nicotine (Nicoderm CQ) 21 MG/24HR patch Place 1 patch on the skin 1 (one) time each day at the same time. 30 patch 02/26/20 24 025 Discontinued(R eorder (will not trigger notification to Pharmacy)) amLODIPine (Norvasc) 10 MG tablet TAKE 1 TABLET BY MOUTH EVERY DAY 30 tablet 09/02/19 025 Discontinued(R eorder (will not trigger notification to Pharmacy)) aspirin (Aspirin Low Dose) 81 MG EC tabletIndicati ons:Hypertensi on, unspecified type TAKE 1 TABLET BY MOUTH EVERY DAY 30 tablet 09/02/19 025 Discontinued(R eorder (will not trigger notification to Pharmacy)) atorvastatin (Lipitor) 20 MG tabletIndicati ons:Hypertensi on, unspecified type TAKE 1 TABLET BY MOUTH EVERY DAY 30 tablet 09/02/19 025 Discontinued(R eorder (will not trigger notification to Pharmacy)) gabapentin (Neurontin) 600 MG tabletIndicati ons:Lumbosacra l spondylosis without myelopathy TAKE 1 TABLET BY MOUTH TWICE DAILY 60 tablet 09/07/19 025 Discontinued(R eorder (will not trigger notification to Pharmacy)) baclofen (Lioresal) 10 MG tablet TAKE 1 TABLET BY MOUTH TWICE DAILY 60 tablet 12/10/19 025 Discontinued Active Problems Problem Noted Date Diagnosed Date Pain, dental 10/04/2024 Periodontal disease 09/01/2024 Dental attrition, excessive, extending into pulp 09/01/2024 Staining (discoloration) of teeth 09/01/2024 Severe generalized gingival recession 03/03/2024 Missing teeth, acquired 03/03/2024 Fractured dental religion with loss of materi al 03/03/2024 Acute kidney injury 12/09/2023 Allergic contact dermatitis due to plant 024 Arthritis 12/09/2023 Disc degeneration, lumbar 12/09/2023 Nicotine dependence, cigarettes, uncomplicated 0 12/09/2023 Osteoarthritis of right hip 12/09/2023 Spondylosis of lumbar spine 12/09/2023 Chronic pain syndrome 12/09/2023 Dental calculus 10/30/2022 Generalized gingival recession 10/30/2022 Excessive attrition of teeth, limited to enamel 10/30/2022 Hypercholesterolemia 05/29/2022 Spinal stenosis 07/08/2018 Chronic low back pain 08/15/2016 Eczema, dyshidrotic 11/17/2015 History of artificial joint 07/23/2012 Chronic hyponatremia 07/23/2012 Lumbosacral spondylosis without myelopathy 12/23 Insomnia 12/24/2011 Hypertension 12/24/2011 Resolved Problems Problem Noted Date Diagnosed Date Resolved Date Elevated cholesterol 12/09/2023 025 Acute hypotension 12/09/2023 01/11/2025 HTN (hypertension) 12/09/2023 Encounters Date Type Department Care Team Description 01/11/2025 10:00 AM EDT Office Visit [facility] [address] [place] [phone] Andriy Gomez MD Hypertension, unspecified type (Primary Dx); Hypercholesterolemia; Lumbosacral spondylosis without myelopathy 01/11/2025 Travel 01/10/2025 Telephone [facility] [address] [place] [phone] Checo Turpin [place] chart prep 12/21/2024 Refill [facility] [address] [place] [address] Andriy Gomez MD 12/16/2024 Refill [facility] [address] [place] [address] Lidia Drummond MD Hand dermatitis 12/09/2024 Refill [facility] [address] [place], [place] [phone] Andriy Gomez MD 10/21/2024 Refill [facility] [address] [place], [place] [phone] Name, MD Andriy from Last 3 Months Immunizations Immunization Administration Dates Next Due Hep A, Adult 03/24/2023,07/23/2012 Hep B, adult 07/23/2012 Influenza High-dose Quadrivalent Preservative Fr ee 01/07/2023 Influenza injectable quadriv alent IIV4 with preservative 03/20/2018,01/16/2017 Influenza injectable quadrivalent preservative f ree 05/30/2020,01/19/2019 Influenza, High Dose Seasonal, Preservative Free 02/26/2024 Influenza, IIV3, injectable 03/28/2014 Influenza, Split (incl. purified surface antigen ) 02/08/2013,12/24/2011 Pneumococcal Conjugate PCV 13 07/08/2018 Pneumococcal Polysaccharide PPSV23 05/30/2020, TD (adult), 2 Lf tetanus tox oid, preservative free, adsorbed 02/27/2001 Tdap 03/24/2023,07/23/2012 Zoster, Recombinant 10/17/2021,08/08/2021 Zoster, live 06/17/2014 Social History Tobacco Use Types Packs/Day Years Used Date Smoking Tobacco: Every Day Cigarettes Passive Smoke Exposure: Current Smokeless Tobacco: Never Tobacco Cessation:Ready to Q uit: No; Counseling Given: Not Answered Alcohol Use Standard Drinks/Week Comments Not Currently 0 (1 standard drink = 0.6 oz pur e alcohol) Alcohol Answer Date Recorded Frequency of Alcohol Consumption Not on file 12/09/2023 Average Number of Drinks Not on file 024 Frequency of Binge Drinking Not on file 11/20 Score 0 12/09/2023 Depression Answer Date Recorded Patient Health Questionnaire-9 Score 2 01/11/2025 Patient Health Questionnaire-9 Score 2 01/11/2025 Last PHQ-9: Questionnaire Data Not on file 0 01/11/2025 Housing Stability Answer Date Recorded What is your housing situation today? I do not have housing (Staying with others, in a hotel, in a fci, living outside on the street, on a beach, in a car, or in a park 01/11/[address] you li ve. Do you have problems with any of the following? None of the above 01/11/2025 Food Insecurity Answer Date Recorded Within the past 12 months, y ou worried that your food would run out before you got money to buy more: Never True 2024 Within the past 12 months,th e food you bought just didn't last and you didn't have enough money to get more: Sometimes True 01/11/2025 Transportation Answer Date Recorded In the past 12 months, has l ack of transportation kept you from medical appts, meetings, work or from getting things needed for daily living? No 01/11/2025 Utilities Answer Date Recorded In the past 12 months, has t he electric, gas, oil or water company threatened to shut off services in your home? No 01/11/2025 Depression Answer Date Recorded Patient Health Questionnaire-2 Score 0 01/11/2025 Internet Access Answer Date Recorded Internet Access Q1 Yes 01/11/2025 Internet Access Q2 Not on file 01/11/2025 Sex and Gender Information Value Date Recorded Sex Assigned at Male 02/18/2022 10:16 AM EDT Legal Sex Male 10:16 AM EDT Gender Identity Male 02/18/2022 10:16 AM EDT Sexual Orientation Straight 02/18/2022 10 :16 AM EDT Last Filed Vital Signs Vital Sign Reading Time Taken Comments Blood Pressure 140/82 01/11/2025 9:58 AM EDT Pulse 86 01/11/2025 9:58 AM EDT Temperature 36.9 C (98.5 F) 01/11/2025 9:58 AM EDT Respiratory Rate 21 01/11/2025 9:58 AM EDT Oxygen Saturation 94% 01/11/2025 9:58 AM EDT Inhaled Oxygen Concentration - - Weight 84 kg (185 lb 3.2 oz) 01/11/2025 9:58 AM EDT Height 165.1 cm (5' 5 ) 01/11/2025 9:58 AM EDT Body Mass Index 30.82 01/11/2025 9:58 AM EDT Plan of Treatment Upcoming Encounters Date Type Department Care Team (Late st Contact Info) Description 04/07/2025 9:45 AM EST Office Visit [facility] [address] [place] [phone] Name, MD Andriy [address] [place] [phone] Health Maintenance Due Date Last Done Comments Anal Pap 1953 CT Colonography 1953 FIT DNA/Cologuard 1953 FIT 1953 FOBT 1955 Sigmoidoscopy 1955 Hepatitis B Vaccines (2 of 3 - Risk 3-dose series) 08/20/2012 07/23/2012 RSV Patients and Patients Aged 60 years or older (1 - Risk 60-74 years 1-dose series) 2013 COVID-19 Vaccine ( season) 2024 10/17/2021, 03/27/2021, 07/25/2020, Additional history exists Influenza Vaccine (#1) 2024 , 01/07/2023, 05/30/2020, Additional history exists Dental X-Ray: Bitewings 03/04/2025 03/03/20 24, 12/18/2022, 12/18/2021, Additional history exists Dental Oral Exam 03/05/2025 09/01/2024, , 12/18/2022, Additional history exists Dental Prophylaxis 03/05/2025 09/01/2024, 1 05/03/2023, 10/30/2022, Additional history exists Alcohol/Substance Use Screening 01/11/2026 01/11/2025 Depression Screening 01/11/2026 01/11/2025, 01/12/20 25 SDOH Screening 01/11/2026 01/11/2025 Tobacco Screening 01/11/2026 01/11/2025 Colonoscopy 08/23/2027 08/22/2017 Colorectal Cancer Screening 08/23/2027 Dental X-Ray: Full Mouth 10/06/2027 025, 03/03/2024, 01/15/2021 Lipid Panel 12/18/2028 12/19/2023, 0704/2022, 01/30/2022, Additional history exists DTaP/Tdap/Td Vaccines (3 - Td or Tdap) 03/24/2033 03/24/2023, 07/23/2012, 02/27/2001 Pneumococcal Vaccine: 50+ Years Completed 05/30/2020, 07/08/2018, 02/27/2001 Zoster Vaccines Completed 10/17/2021, 07/21, 06/17/2014 Hepatitis C Screening Completed 10/01/2022 Hepatitis A Vaccines Completed 03/24/2023, 07/24/19 13 HIB Vaccines Aged Out No longer eligi ble based on patient's age to complete this topic HPV Vaccines Aged Out No longer eligi ble based on patient's age to complete this topic IPV Vaccines Aged Out No longer eligi ble based on patient's age to complete this topic Meningococcal B Vaccine Aged Out No l onger eligible based on patient's age to complete this topic Meningococcal Vaccine Aged Out No melody nasra eligible based on patient's age to complete this topic RSV under 20 months Aged Out No longe r eligible based on patient's age to complete this topic Rotavirus Vaccines Aged Out No longer eligible based on patient's age to complete this topic Procedures Procedure Name Priority Date/Time Associated Diagnosis Comments PANORAMIC RADIOGRAPHIC IMAGE Routine 10/04/2024 11:30 AM EDT PROPHYLAXIS - ADULT Routine 09/01/2024 1 0:00 AM EDT Dental calculus PERIODIC ORAL EVALUATION - ESTABLISHED PATIENT Routine 09/01/2024 10:00 AM EDT INTRAORAL - COMPLETE SERIES OF RADIOGRAPHIC IMAGES Routine 03/03/2024 10:00 AM EST Excessive attrition of teeth, limited to enamel Severe generalized gingival recession Dental calculus Dental attrition, excessive, extending into pulp Missing teeth, acquired LIPID PANEL, STANDARD Routine 12/19/2023 8:26 AM EDT Hypertension, unspecified type On statin therapy Eczema, dyshidrotic HEPATITIS C VIRAL RNA, QUANTITATIVE, REAL-TIME PCR Routine 10/01/2022 8:01 AM EDT Need for hepatitis C screening test [facility] COLONOSCOPY Routine 08/22/2017 12:20 PM EDT from Last 3 Months or Most Recently Relevant to Health Maintenance Results * Lipid Panel, Standard (12/19/2023 8:26 AM EDT) Triglycerides 53 <150 mg/dL [facility] Comment:Desirable Triglyceri de: less than 150 mg/dLBorderline High Triglyceride 150-199 mg/dLHigh Triglyceride: 200-499 mg/dLVery High Triglyceride: greater than or equal to 5OO mg/dL Cholesterol 125 <200 mg/dL [facility] Comment:Desirable Cholestero l: less than 200 mg/dLBorderline High Cholesterol: 200-239 mg/dLHigh Cholesterol: greater than 239 mg/dL LDL Cholesterol Calculated 71 <100 mg/dL [facility] Comment:Desirable LDL: less than 100 mg/dLNear Optimal/Above Optimal LDL: 110- 129 mg/dLBorderline High LDL: 130-159 mg/dLHigh LDL: 160-189 mg/dLVery High LDL: greater than or equal to 190 mg/dL HDL Cholesterol 44 >40 mg/dL [facility] Comment:Desirable HDL: great er than 40 mg/dL Note: This HDL assay may give artificially low results in patients with liver disease. Blood Venous blood specimen / Unknown 12/19/2023 8:26 AM EDT 12/19/2023 11:03 AM EDT us Andriy Name LAB BLOOD ORDERABLES Final Resul t [facility] [address] [place] [phone] * Hepatitis C Viral RNA, Quantitative, Real-Time PC (10/01/2022 8:01 AM EDT) HCV RNA, QN Real Time PCR <15 NOT DETECTED NOT DETECTED IU/mL [facility] HCV RNA QN Real Time PCR <1.18 NOT DETECTED NOT DETECTED Log IU/mL [facility] Comment: This test was performed using Real-Time Polymerase Chain Reaction. Reportable Range: 15 IU/mL to 100,000,000 IU/mL (1.18 Log IU/mL to 8.00 Log IU/mL). The analytical performance characteristics of this assay have been determined by [facility]. The modifications have not been cleared or approved by the FDA. This assay has been validated pursuant to the CLIA regulations and is used for clinical purposes. For more information on this test, go to: http://education.[employer]/faq/LYR28m7 (This link is being provided for informational/ educational purposes only.) 10/01/2022 8:01 AM EDT 10/01/2022 8:01 AM EDT Narrative [facility] - 10/03/2022 1:47 PM EDT FASTING:YES FASTING: YES Andriy Name LAB BLOOD ORDERABLES Final Resul t [facility] [address], [place] [address] [facility] [address] [place] [address] * Hm Colonoscopy (08/22/2017 12:20 PM EDT) Colonoscopy Normal Normal Narrative Beronica Winchester - 08/22/2017 12:20 PM EDT Recommended 10 year follow up Historical Provider HEALTH MAINTENANCE Final Result from Last 3 Months or Most Recently Relevant to Health Maintenance Insurance DUAL COMPLETE DENTAL - [facility] Care Teams Life Sciences Manager Relationship Specialty Start Date End Date Name, MD Andriy [address] [place] [phone] PCP - General Family Medicine 09/28/15
[2025-01-18 11:51] LABS: MANUAL DIFF FLAG NO
[2025-01-18 11:54] LABS: Hematocrit 46.5 % (42.0-52.0); Hemoglobin 15.4 g/dl (14.0-18.0); Imm Gran Abs Auto 0.02 X10*3/uL (0.00-0.03); Imm Gran Pct Auto 0.3 % (0.0-0.4); Lymphocytes Absolute Auto 1.9 X10*3/uL (1.2-4.9); Mean Corpuscular HGB Conc 33.1 g/dl (31.0-36.0); Mean Corpuscular Hemoglobin 30.3 pg (27.0-33.0); Mean Corpuscular Volume 91.4 fL (80.0-98.0); NRBC Abs Auto 0.000 X10*3/uL (0.0-0.012); NRBC Pct Auto 0.0 /100WBC (0.0-0.2); Platelet Count 254 X10*3/uL (160-400); Red Blood Count 5.09 X10*6/uL (4.60-5.80); White Blood Count 7.3 X10*3/uL (4.8-10.8)
[2025-01-18 12:37] LABS: Alanine Aminotransferase 23 U/L (0-40); Albumin Level 4.6 g/dL (3.5-5.0); Alkaline Phosphatase 75 U/L (39-117); Anion Gap 14 (12-20); Aspartate Amino Transferase 28 U/L (5-37); Blood Urea Nitrogen 17 mg/dL (9-16); Calcium 9.5 mg/dL (8.4-10.2); Carbon Dioxide 23 mmol/L (22-29); Chloride 109 mmol/L (96-108); Cholesterol 150 mg/dL (<200); Estimated Glomerular Filt Rate > 60; HDL Cholesterol 44 mg/dL (>40); Potassium 4.0 mmol/L (3.3-5.1); Sodium 142 mmol/L (135-145); Total Protein 7.3 g/dL (6.5-8.0); Triglycerides 82 mg/dL (<150)
== END 2025-01-18 08:06 | disposition home or self-care (01) ==
LOC: HO.HHCL 08:05
PROVIDERS: PCP Internal Medicine Geriatric Medicine; Visit Provider Internal Medicine Geriatric Medicine
DX: I10 Essential (primary) hypertension (principal); E78.00 Pure hypercholesterolemia, unspecified
CPT/HCPCS: 36415; 80053; 80061; 85025

== ENCOUNTER 2025-02-03 15:00 | Outpatient (REF) | payer OTHER, SELFPAY ==
--- NOTE | ~2025-02-03 | CT_ITS ---
EXAMINATION: CT LUNG SCREENING HISTORY: F17.210 - Nicotine dependence, cigarettes, uncomplicated TECHNIQUE: Low dose axial images were obtained from the sternal notch to upper abdomen without IV contrast per standard departmental protocol. Sagittal and coronal reformatted images were also obtained and reviewed. One or more of the following techniques was used for dose reduction: Automated exposure control, adjustment of the mA and/or kV according to patient size, use of iterative reconstruction technique. DLP: 56 mGy-cm COMPARISON: Comparison is made with the prior examination dated 12/25/2023. FINDINGS: Lung nodules: No suspicious pulmonary nodules are identified. Emphysema: mild Coronary Calcification: mild Aortic Arch Calcification: mild. The ascending thoracic aorta measures up to 4.0 cm in diameter. Potentially Significant Incidentals : none Additional Chest Findings: There is no pleural or pericardial effusion. No mediastinal or axillary lymphadenopathy is identified. Visualized upper abdomen: The visualized portions of the liver, spleen, and adrenals have an unremarkable unenhanced appearance. CT/CT lung screening IMPRESSION: No suspicious pulmonary nodules are identified. LUNG-RADS ASSESSMENT: Lung-RADS 1: Negative MANAGEMENT: Continue annual screening with LDCT in 12 months Category S: N/A Electronically signed by: Dave Man MD 02/04/2025 07:05 AM EDT
--- OUTSIDE RECORDS SUMMARY | 2025-02-03 18:55 | XMS_ITS | Encounter Summary ---
Author Organization [employer] Address [address] [facility] 7t [place] [address] Care Team Providers Care Glazier Stained Glass Name Role Phone Name, Andriy RANGEL Primary Care Provider [phone] Encounter Details Date Type Department Care Team (Latest Contact Info) Description 07/01/2019 Abstract [facility] CONVERSIONS Dental, Provider, DDS Social History [...] Description 04/07/2025 9:45 AM EST Office Visit [facility] [address] [place] [address] NameAndriy MD [address] [place] [address] documented as of this encounter Visit Diagnoses Not on filedocumented in this encounter Care Teams Glazier Stained Glass Relationship Specialty Start Date End Date Name, MD Andriy [address] [place] [phone] PCP - General Family Medicine 09/28/15 documented as of this encounter
--- OUTSIDE RECORDS SUMMARY | 2025-02-03 18:55 | XMS_ITS | Encounter Summary ---
Author Organization [employer] [facility] Address [address] [facility] 7t [place] [address] Care Team Providers Care Manpower Development Manager Name Role Phone Name, Andriy RANGEL Primary Care Provider [phone] Encounter Details Date Type Department Care Team (Late st Contact Info) Description 04/04/2022 Orders Only [facility] [address] [place] [phone] Sugar Aguilera LPN Social History Tobacco Use [...] Description 04/07/2025 9:45 AM EST Office Visit [facility] [address] [place] [phone] NameAndriy MD [address] [place] [address] documented as of this encounter Visit Diagnoses Not on filedocumented in this encounter Care Teams Manpower Development Manager Relationship Specialty Start Date End Date NameAndriy MD [address] [place] [phone] PCP - General Family Medicine 09/28/15 documented as of this encounter
--- OUTSIDE RECORDS SUMMARY | 2025-02-03 18:55 | XMS_ITS | Encounter Summary ---
Author Organization [employer] Address 75 [facility] 7t [place] [address] Care Team Providers Care Audit Clerk Name Role Phone Name, Andriy RANGEL Primary Care Provider [phone] Encounter Details Date Type Department Care Team (Latest Contact Info) Description 12/18/2021 Abstract [facility] CONVERSIONS Dental, Provider, DDS Social History [...] Description 04/07/2025 9:45 AM EST Office Visit [facility] [address] [place] [address] NameAndriy MD [address] [place] [address] documented as of this encounter Visit Diagnoses Not on filedocumented in this encounter Care Teams Audit Clerk Relationship Specialty Start Date End Date Name, MD Andriy [address] [place] [address] PCP - General Family Medicine 09/28/15 documented as of this encounter
--- OUTSIDE RECORDS SUMMARY | 2025-02-03 18:55 | XMS_ITS | Encounter Summary ---
Author Organization [employer] Address [address] [facility] 7t [place] [address] Care Team Providers Care Manager Telemetry Name Role Phone Name, Andriy RANGEL Primary Care Provider [phone] Encounter Details Date Type Department Care Team (Latest Contact Info) Description 01/15/2021 Abstract [facility] CONVERSIONS Dental, Provider, DDS Social [...] Description 04/07/2025 9:45 AM EST Office Visit [facility] [address] [place] [address] NameAndriy MD [address] [place] [address] documented as of this encounter Visit Diagnoses Not on filedocumented in this encounter Care Teams Manager Telemetry Relationship Specialty Start Date End Date Name, MD Andriy [address] [place] [address] PCP - General Family Medicine 09/28/15 documented as of this encounter
--- OUTSIDE RECORDS SUMMARY | 2025-02-03 18:55 | XMS_ITS | Encounter Summary ---
Author Organization [employer] Address [address] [facility] 7t [place] [address] Care Team Providers Care Warehouse Team Leader Name Role Phone Name, Andriy RANGEL Primary Care Provider [phone] Reason for Visit * Reason Comments Med Refill Encounter Details Date Type Department Care Team ([facility] st Contact Info) Description 02/01/2025 Refill [facility] [address] [place], [place] [phone] Name, MD Andriy [address] [place] [address] Social History Tobacco Use Types Packs/Day Years [...] with others, in a hotel, in a chcf, living outside on the street, on a [...] EST Office Visit [facility] [address] [place] [phone] Name, MD Andriy [address] [place] [address] documented as of this encounter Visit Diagnoses Not on filedocumented in this encounter Additional Health Concerns Assessment Noted Time PHQ-9 Depression Total Score: 2 01/12/20 25 10:01 AM EDT documented as of this encounter Care Teams Warehouse Team Leader Relationship Specialty Start Date End Date NameAndriy MD [address] [place] [phone] PCP - General Family Medicine 09/28/15 documented as of this encounter
--- OUTSIDE RECORDS SUMMARY | 2025-02-03 18:55 | XMS_ITS | Clinical Summary ---
Author Organization [employer] Address 75 [facility] 7t [place] [address] Care Team Providers Care Casey Saw Operator Name Role Phone Name, Adnriy RANGEL Primary Care Provider [phone] Allergies No known active allergies Medications hydrocortisone [...] tablet 11/04/19 24 025 Discontinued(T herapy completed) amLODIPine (Norvasc) 10 MG tablet TAKE 1 TABLET BY MOUTH EVERY DAY 30 tablet 09/02/19 25 025 Discontinued(R eorder (will not trigger notification to Pharmacy)) aspirin (Aspirin Low Dose) 81 MG EC tabletIndicati ons:Hypertensi on, unspecified type TAKE 1 TABLET BY MOUTH EVERY DAY 30 tablet 09/02/19 25 025 Discontinued(R eorder (will not trigger notification [...] 03/03/2024 Missing teeth, acquired 03/03/2024 Fractured dental baptism with loss of materi al 03/03/2024 Acute [...] Encounters Date Type Department Care Team Description 02/01/2025 Refill [facility] MED & PEDS [address] [place] [address] Andriy Gomez MD 01/11/2025 10:00 AM EDT Office Visit [facility] MEDICINE [address] [place] [phone] Andriy Gomez MD Hypertension, unspecified type (Primary Dx); Hypercholesterolemia; Lumbosacral spondylosis without myelopathy 01/11/2025 Travel 01/10/2025 Telephone [facility] MEDICINE [address] [place] [address] Checo Turpin [place] chart prep 12/21/2024 Refill [facility] CH[facility] MED & PEDS [address] [place] [address] Andriy Gomez MD 12/16/2024 Refill [facility] MEDICINE [address] [place] [address] Lidia Drummond MD Hand dermatitis 12/09/2024 Refill [facility] CH[facility] MED & PEDS [address] [place] [address] Andriy Gomez MD from Last 3 Months Immunizations Immunization Administration [...] with others, in a hotel, in a prison, living outside on the street, on a [...] 9:45 AM EST Office Visit [facility] MEDICINE [address] [place] [address] Name, MD Andriy [address] [place] [address] Health Maintenance Due Date Last Done Comments [...] Mouth 10/06/2027 025, 03/03/2024, 01/15/2021 Lipid Panel 01/18/2030 01/18/2025, 11/21, 10/29/2022, Additional history exists DTaP/Tdap/Td Vaccines (3 - [...] Procedure Name Priority Date/Time Associated Diagnosis Comments LIPID PANEL, STANDARD Routine 01/18/2025 8:14 AM EDT Hypertension, unspecified type Hypercholesterolemi a COMPREHENSIVE METABOLIC PANEL Routine 01/18/2025 8:14 AM EDT Hypertension, unspecified type Hypercholesterolemi a CBC WITH AUTO DIFFERENTIAL Routine 01/18/2025 8:14 AM EDT Hypertension, unspecified type Hypercholesterolemi a PANORAMIC RADIOGRAPHIC IMAGE Routine 10/04/2024 11:30 AM [...] excessive, extending into pulp Missing teeth, acquired HEPATITIS C VIRAL RNA, QUANTITATIVE, REAL-TIME PCR Routine 10/01/2022 8:01 AM EDT Need for hepatitis C screening test HM COLONOSCOPY Routine 08/22/2017 12:20 PM EDT from Last 3 Months or Most Recently Relevant to Health Maintenance Results * CBC auto differential (01/18/2025 8:14 AM EDT) White Blood Count 7.3 4.8 - 10.8 X10*3/uL [facility] Red Blood Count 5.09 4.60 - 5.80 X10*6/uL [facility] Hemoglobin 15.4 14.0 - 18.0 g/dl [facility] Hematocrit 46.5 42.0 - 52.0 % [facility] Mean Corpuscular Volume 91.4 80.0 - 98.0 fL [facility] Mean Corpuscular Hemoglobin 30.3 27.0 - 33.0 pg [facility] Mean Corpuscular HGB Conc 33.1 31.0 - 36.0 g/dl [facility] Red Cell Distribution Width 14.0 11.0 - 16.0 % [facility] Platelet Count 254 160 - 400 X10*3/uL [facility] Mean Platelet Volume 10.4 9.4 - 12.4 fL [facility] Neutrophils Percent Auto 64.3 45 - 73 % [facility] Imm Gran Pct Auto 0.3 0.0 - 0.4 % [facility] Lymphocytes Percent Auto 25.5 20 - 40 % [facility] Monocytes Percent Auto 5.6 2 - 11 % [facility] Eosinophils Percent Auto 3.5 0 - 4 % [facility] Basophils Percent Auto 0.8 0 - 2 % [facility] NRBC Pct Auto 0.0 0.0 - 0.2 /100WBC [facility] Neutrophils Absolute Auto 4.7 2.0 - 8.3 x10*3/uL [facility] Imm Gran Abs Auto 0.02 0.00 - 0.03 X10*3/uL [facility] Lymphocytes Absolute Auto 1.9 1.2 - 4.9 X10*3/uL [facility] Monocytes Absolute Auto 0.4 0.1 - 1.2 X10*3/uL [facility] Eosinophils Absolute Auto 0.3 0.0 - 0.4 X10*3/uL [facility] Basophils Absolute Auto 0.1 0.0 - 0.2 X10*3/uL [facility] NRBC Abs Auto 0.000 0.0 - 0.012 X10*3/uL [facility] Blood Venous blood specimen / Unknown 01/18/2025 8:14 AM EDT 01/18/2025 11:46 AM EDT us Andriy Gomez MD LAB BLOOD ORDERABLES Final Resul t Performing Organization Address [facility] Co de Phone Number [facility] [address] [place] [phone] * Lipid Panel, Standard (01/18/2025 8:14 AM EDT) Triglycerides 82 <150 mg/dL [facility] Comment:Desirable Triglyceri de: less than 150 mg/dLBorderline High Triglyceride 150-199 mg/dLHigh Triglyceride: 200-499 mg/dLVery High Triglyceride: greater than or equal to 5OO mg/dL Cholesterol 150 <200 mg/dL [facility] Comment:Desirable Cholestero l: less than 200 mg/dLBorderline High Cholesterol: 200-239 mg/dLHigh Cholesterol: greater than 239 mg/dL LDL Cholesterol Calculated 90 <100 mg/dL [facility] Comment:Desirable LDL: less than 100 mg/dLNear Optimal/Above Optimal LDL: 110- 129 mg/dLBorderline High LDL: 130-159 mg/dLHigh LDL: 160-189 mg/dLVery High LDL: greater than or equal to 190 mg/dL HDL Cholesterol 44 >40 mg/dL [facility] Comment:Desirable HDL: great er than 40 mg/dL Note: This HDL assay may give artificially low results in patients with liver disease. Blood Venous blood specimen / Unknown 01/18/2025 8:14 AM EDT 01/18/2025 11:46 AM EDT us Andriy Gomez MD LAB BLOOD ORDERABLES Final Resul t Performing Organization Address [facility] Co de Phone Number [facility] [address] [place] [phone] * (ABNORMAL) Comprehensive Metabolic Panel (01/18/2025 8:14 AM EDT) Sodium 142 135 - 145 mmol/L [facility] Potassium 4.0 3.3 - 5.1 mmol/L [facility] Chloride 109(H) 96 - 108 mmol/L [facility] Carbon Dioxide 23 22 - 29 mmol/L [facility] Anion Gap 14 12 - 20 [facility] Urea Nitrogen (BUN) 17(H) 9 - 16 mg/dL [facility] Creatinine, Serum 0.94 0.5 - 1.4 mg/dL [facility] Estimated Glomerular Filt Rate >60 [facility] Comment:Chronic Kidney Disea se: Estimated GFR < 60 mL/min/1.29g0Rxyvtq Kidney Disease: Estimated GFR < 15 mL/min/1.73m2 Glucose 83 60 - 115 mg/dL [facility] Calcium 9.5 8.4 - 10.2 mg/dL [facility] Bilirubin, Total 1.1(H) 0.0 - 1.0 mg/dL [facility] Aspartate Amino Transferase 28 5 - 37 U/L [facility] Alanine Aminotransferase 23 0 - 40 U/L [facility] Total Protein 7.3 6.5 - 8.0 g/dL [facility] Albumin Level 4.6 3.5 - 5.0 g/dL [facility] Alkaline Phosphatase 75 39 - 117 U/L [facility] Blood Venous blood specimen / Unknown 01/18/2025 8:14 AM EDT 01/18/2025 11:46 AM EDT us Andriy Name LAB BLOOD ORDERABLES Final Resul t [facility] [address] [place] [phone] * Hepatitis C Viral RNA, Quantitative, Real-Time PC (10/01/2022 8:01 AM EDT) Pathologist [facility] HCV RNA, QN Real Time PCR <15 NOT DETECTED NOT DETECTED IU/mL [facility] HCV RNA QN Real Time PCR <1.18 NOT DETECTED NOT DETECTED Log IU/mL [facility] [facility] [employer] Comment: This test was performed using Real-Time Polymerase Chain Reaction. Reportable Range: 15 IU/mL to 100,000,000 IU/mL (1.18 Log IU/mL to 8.00 Log IU/mL). The analytical performance characteristics of this assay have been determined by [employer]. The modifications have not been cleared or approved by the FDA. This assay has been validated pursuant to the CLIA regulations and is used for clinical purposes. For more information on this test, go to: http://education.LiveHotSpot/faq/VSY59q6 (This link is being provided for informational/ educational purposes only.) 10/01/2022 8:01 AM EDT 10/01/2022 8:01 AM EDT Narrative [facility] - 10/03/2022 1:47 PM EDT FASTING:YES FASTING: YES Andriy Name LAB BLOOD ORDERABLES Final Resul t [facility] [address], [place] [address] [facility] [address] [place] [address] * Hm Colonoscopy (08/22/2017 12:20 PM EDT) Colonoscopy Normal Normal Narrative Beronica [facility] - 08/22/2017 12:20 PM EDT Recommended 10 year follow up Historical Provider HEALTH MAINTENANCE Final Result from Last 3 Months or Most Recently Relevant to Health Maintenance Insurance [facility] Care Teams Casey Saw Operator Relationship Specialty Start Date End Date Name, MD Andriy [address] [place] [address] PCP - General Family Medicine 09/28/15
--- OUTSIDE RECORDS SUMMARY | 2025-02-03 18:55 | XMS_ITS | Encounter Summary ---
Author Organization [employer] Address 75 [facility] 7t [place] [address] Care Team Providers Care Jockey'S Agent Name Role Phone Name, Andriy RANGEL Primary Care Provider [phone] Reason for Visit * Reason Comments Med Refill Encounter Details Date Type Department Care Team ([facility] st Contact Info) Description 05/03/2024 Refill [facility] MEDICINE [address] [place], [place] [phone] Name, MD Andriy [address] [place] [address] Social History Tobacco Use Types Packs/Day Years [...] Description 04/07/2025 9:45 AM EST Office Visit [facility] MEDICINE [address] [place] [address] NameAndriy MD [address] [place] [address] documented as of this encounter Visit Diagnoses Not on filedocumented in this encounter Additional Health Concerns Assessment Noted Time PHQ-9 Depression Total Score: 0 08/19/19 24 1:30 PM EDT documented as of this encounter Care Teams Jockey'S Agent Relationship Specialty Start Date End Date NameAndryi MD [address] [place] [phone] PCP - General Family Medicine 09/28/15 documented as of this encounter
--- OUTSIDE RECORDS SUMMARY | 2025-02-03 18:55 | XMS_ITS | Encounter Summary ---
Author Organization [employer] Address 75 [facility] 7t [place] [address] Care Team Providers Care Set Staff Fitter Name Role Phone Name, Andriy RANGEL Primary Care Provider [phone] Reason for Visit * Reason Comments Med Refill Encounter Details Date Type Department Care Team ([facility] st Contact Info) Description 05/28/2024 Refill [facility] MEDICINE [address] [place], [place] [phone] Name, MD Andriy [address] [place] [address] Hand dermatitis Social History Tobacco Use Types [...] Description 04/07/2025 9:45 AM EST Office Visit [facility] MEDICINE [address] [place] [phone] Name, MD Andriy [address] [place] [address] documented as of this encounter Visit Diagnoses Diagnosis Hand dermatitis Contact dermatitis and other eczema, due to unspecified cause documented in this encounter Additional Health Concerns Assessment Noted Time PHQ-9 Depression Total Score: 0 08/19/19 24 1:30 PM EDT documented as of this encounter Care Teams Set Staff Fitter Relationship Specialty Start Date End Date NameAndriy MD [address] [phone] PCP - General Family Medicine 09/28/15 documented as of this encounter
--- OUTSIDE RECORDS SUMMARY | 2025-02-03 18:55 | XMS_ITS | Encounter Summary ---
Author Organization [employer] [facility] Address [address] [place] [address] 7t [place] [address] Care Team Providers Care Social Media Intern Name Role Phone NameAndriy MD Primary Care Provider [phone] Reason for Visit * Reason Comments Med Refill Encounter Details Date Type Department Care Team (Late st Contact Info) Description 09/24/2022 Refill [facility] MEDICINE [address] [place] [address] Andriy Gomez MD [address] [place] [address] [phone] Chronic pain syndrome Social History Tobacco Use [...] Description 04/07/2025 9:45 AM EST Office Visit [facility] MEDICINE [address] [place] [phone] Andriy Gomez MD [address] [place] [address] documented as of this encounter Visit Diagnoses Diagnosis Chronic pain syndrome documented in this encounter Care Teams Social Media Intern Relationship Specialty Start Date End Date NameAndriy MD [address] [place] [address] PCP - General Family Medicine 09/28/15 documented as of this encounter
--- OUTSIDE RECORDS SUMMARY | 2025-02-03 18:55 | XMS_ITS | Encounter Summary ---
Author Organization [employer] Address 75 [facility] 7t [place] [address] Care Team Providers Care Portfolio Specialist Name Role Phone Name, Andriy RANGEL Primary Care Provider [phone] Reason for Visit * Reason Comments Med Refill Encounter Details Date Type Department Care Team ([facility] st Contact Info) Description 09/07/2023 Refill [facility] MEDICINE [address] [place], [place] [phone] Name, MD Andriy [address] [place], [place] [phone] Hypertension, unspecified type Social History Tobacco Use [...] Description 04/07/2025 9:45 AM EST Office Visit [facility] MEDICINE [address] [place] [phone] NameAndriy MD [address] [place] [address] documented as of this encounter Visit Diagnoses Diagnosis Hypertension, unspecified type documented in this encounter Additional Health Concerns Assessment Noted Time PHQ-9 Depression Total Score: 0 08/19/19 24 1:30 PM EDT documented as of this encounter Care Teams Portfolio Specialist Relationship Specialty Start Date End Date Name, MD Andriy [address] [place] [address] PCP - General Family Medicine 09/28/15 documented as of this encounter
--- OUTSIDE RECORDS SUMMARY | 2025-02-03 18:55 | XMS_ITS | Encounter Summary ---
Author Organization [employer] [facility] Address [address] [place] [address] 7t [place] [address] Care Team Providers Care Form Worker Name Role Phone NameAndriy MD Primary Care Provider [phone] Reason for Visit * Reason Comments Med Refill Encounter Details Date Type Department Care Team (Late st Contact Info) Description 09/26/[address] [facility] MEDICINE [address] [place] [phone] Andriy Gomez MD [address] [place] [address] [phone] Chronic pain syndrome Social History Tobacco Use [...] 9:45 AM EST Office Visit [facility] MEDICINE [address] [place] [address] Andriy Gomez MD [address] [place] [address] documented as of this encounter Visit Diagnoses Diagnosis Chronic pain syndrome documented in this encounter Care Teams Form Worker Relationship Specialty Start Date End Date NameAndriy MD [address] [place] [address] PCP - General Family Medicine 09/28/15 documented as of this encounter
--- OUTSIDE RECORDS SUMMARY | 2025-02-03 18:55 | XMS_ITS | Encounter Summary ---
Author Organization [employer] Address 75 [facility] 7t [place] [address] Care Team Providers Care Sports Journalist Name Role Phone Name, Andriy RANGEL Primary Care Provider [phone] Reason for Visit * Reason Onset Date Comments Reschedule 06/26/2023 Encounter Details Date Type Department Care Team ([facility] Contact Info) Description 06/26/2023 Telephone [facility] MEDICINE [address] [place], [place] [phone] Name, MD Andriy [address] [place] [address] Reschedule Social History Tobacco Use Types Packs/Day [...] Tc from pt requesting r/s f/u appt. Glue Bone Drier attempted to schedule, no availability. documented in this encounter Plan of Treatment Upcoming Encounters Date Type Department Care Team (Late st Contact Info) Description 04/07/2025 9:45 AM EST Office Visit [facility] MEDICINE [address] [place] [phone] Name, MD Andriy [address] [place] [address] documented as of this encounter Visit Diagnoses Not on filedocumented in this encounter Care Teams Sports Journalist Relationship Specialty Start Date End Date Andriy Gomez MD [address] [place] [address] PCP - General Family Medicine 09/28/15 documented as of this encounter
--- OUTSIDE RECORDS SUMMARY | 2025-02-03 18:55 | XMS_ITS | Encounter Summary ---
Author Organization [employer] Address 75 [facility] 7t [place] [address] Care Team Providers Care Credit Manager Name Role Phone Name, Andriy RANGEL Primary Care Provider [phone] Encounter Details Date Type Department Care Team (Late st Contact Info) Description 09/30/2022 Abstract [facility] MEDICINE [address] [place] [address] [phone] Name, MD Andriy [address] [place] [address] [phone] Social History Tobacco Use Types Packs/Day Years [...] Description 04/07/2025 9:45 AM EST Office Visit [facility] MEDICINE [address] [place] [address] [phone] NameAndriy MD [address] [place] [address] [phone] documented as of this encounter Procedures Procedure [...] on filedocumented in this encounter Care Teams Credit Manager Relationship Specialty Start Date End Date Name, MD Andriy [address] [place] [address] PCP - General Family Medicine 09/28/15 documented as of this encounter
--- OUTSIDE RECORDS SUMMARY | 2025-02-03 18:55 | XMS_ITS | Encounter Summary ---
Author Organization [employer] Address 75 [facility] 7t [place] [address] Care Team Providers Care Fare Collector Name Role Phone Name, Andriy RANGEL Primary Care Provider [phone] Encounter Details Date Type Department Care Team (Latest Contact Info) Description 06/30/2018 Abstract [facility] CONVERSIONS Dental, Provider, DDS Social [...] Description 04/07/2025 9:45 AM EST Office Visit [facility] MEDICINE [address] [place] [address] NameAndriy MD [address] [place] [address] documented as of this encounter Visit Diagnoses Not on filedocumented in this encounter Care Teams Fare Collector Relationship Specialty Start Date End Date Name, MD Andriy [address] [place] [address] PCP - General Family Medicine 09/28/15 documented as of this encounter
--- OUTSIDE RECORDS SUMMARY | 2025-02-03 18:55 | XMS_ITS | Encounter Summary ---
Author Organization [employer] Address 75 [facility] 7t [place] [address] Care Team Providers Care Environmental Science Instructor Name Role Phone Name, Andriy RANGEL Primary Care Provider [phone] Reason for Visit * Reason Onset Date Comments Hospital Follow-up 02/27/2023 Encounter Details Date Type Department Care Team ([facility] Contact Info) Description 02/27/2023 Telephone [facility] MEDICINE [address] [place], [place] [phone] Name, MD Andriy [address] [place] [address] Hospital Follow-up Social History Tobacco Use Types [...] requesting HDF appointment. Pt was admitted at [facility] on 01/09 and discharged on 01/11. Was diagnosed with orthostatis. Was advised will forward to care coordinators for f/u. Please contact pt at [phone] documented in this encounter Plan of Treatment Upcoming Encounters Date Type Department Care Team (Late st Contact Info) Description 04/07/2025 9:45 AM EST Office Visit [facility] MEDICINE [address] [place] [phone] Name, MD Andriy [address] [place] [address] documented as of this encounter Visit Diagnoses Not on filedocumented in this encounter Care Teams Environmental Science Instructor Relationship Specialty Start Date End Date Name, MD Andriy [address] [place] [address] PCP - General Family Medicine 09/28/15 documented as of this encounter
--- OUTSIDE RECORDS SUMMARY | 2025-02-03 18:55 | XMS_ITS | Encounter Summary ---
Author Organization [employer] Address 75 [facility] 7t [place] [address] Care Team Providers Care Ending Machine Operator Name Role Phone Name, Andriy RANGEL Primary Care Provider [phone] Reason for Visit * Reason Comments Med Refill Encounter Details Date Type Department Care Team ([facility] st Contact Info) Description 05/29/2023 Refill [facility] MEDICINE [address] [place], [place] [phone] Name, MD Andriy [address] [place] [address] Chronic pain syndrome Social History Tobacco Use [...] Description 04/07/2025 9:45 AM EST Office Visit [facility] MEDICINE [address] [place] [address] Name, MD Andriy [address] [place] [address] documented as of this encounter Visit Diagnoses Diagnosis Chronic pain syndrome documented in this encounter Care Teams Ending Machine Operator Relationship Specialty Start Date End Date Name, MD Andriy [address] [place] [address] PCP - General Family Medicine 09/28/15 documented as of this encounter
--- OUTSIDE RECORDS SUMMARY | 2025-02-03 18:55 | XMS_ITS | Encounter Summary ---
Author Organization [employer] Address [address] [facility] [address] 7t [place] [address] Care Team Providers Care Equipment Operating Engineer Name Role Phone Name, Andriy RANGEL Primary Care Provider [phone] Encounter Details Date Type Department Care Team ([facility] st Contact Info) Description 09/02/2024 Telephone [facility] MEDICINE [address] [place], [place] [phone] Name, MD Andriy [address] [place] [address] Social History Tobacco Use Types Packs/Day Years [...] back from from vacations. Please return call [phone] documented in this encounter Plan of Treatment Upcoming Encounters Date Type Department Care Team (Late st Contact Info) Description 04/07/2025 9:45 AM EST Office Visit [facility] MEDICINE [address] [place] [phone] Name, MD Andriy [address] [place] [address] documented as of this encounter Visit Diagnoses Not on filedocumented in this encounter Additional Health Concerns Assessment Noted Time PHQ-9 Depression Total Score: 0 08/19/19 24 1:30 PM EDT documented as of this encounter Care Teams Equipment Operating Engineer Relationship Specialty Start Date End Date Name, MD Andriy [address] [place] [phone] PCP - General Family Medicine 09/28/15 documented as of this encounter
--- OUTSIDE RECORDS SUMMARY | 2025-02-03 18:55 | XMS_ITS | Encounter Summary ---
Author Organization [employer] Address [address] [facility] [address] [place] [address] Care Team Providers Care Road Tester Name Role Phone Name, Andriy RANGEL Primary Care Provider [phone] Reason for Visit * Reason Comments Med Refill Encounter Details Date Type Department Care Team ([facility] st Contact Info) Description 12/06/2023 Refill [facility] [address] [place], [place] [phone] Fahad Chambers MD [address], [place] [phone] Social History Tobacco Use Types Packs/Day Years [...] Description 04/07/2025 9:45 AM EST Office Visit [facility] [address] [place] [phone] Name, MD Andriy [address] [place] [address] documented as of this encounter Visit Diagnoses Not on filedocumented in this encounter Additional Health Concerns Assessment Noted Time PHQ-9 Depression Total Score: 0 08/19/19 24 1:30 PM EDT documented as of this encounter Care Teams Road Tester Relationship Specialty Start Date End Date NameAndriy MD [address] [place] [id number] PCP - General Family Medicine 09/28/15 documented as of this encounter
== END 2025-02-03 15:01 | disposition home or self-care (01) ==
LOC: HO.CT 15:00
PROVIDERS: PCP Internal Medicine Geriatric Medicine; Visit Provider Physician Assistant Medical
DX: Z12.2 Encounter for screening for malignant neoplasm of respiratory organs (principal); F17.210 Nicotine dependence, cigarettes, uncomplicated
CPT/HCPCS: 71271

== ENCOUNTER → 2025-02-03 15:02 | Outpatient (BNV) | payer OTHER, SELFPAY | PROVIDERS: PCP Internal Medicine Geriatric Medicine; Visit Provider Radiology Diagnostic Radiology | DX: F17.210 Nicotine dependence, cigarettes, uncomplicated (principal) | CPT/HCPCS: 71271 ==